=== PATIENT | male | born 1950 | race Caucasian/White ===

== ENCOUNTER 2016-12-12 19:13 | Observation (INO) | payer MEDICARE, OTHER ==
--- NOTE | 2016-12-12 19:38 | EDM.PDOC ---
ED HPI GENERAL MEDICAL PROBLEM - General Chief Complaint: General Stated Complaint: sleeping alot last 5 days Time Seen by Provider: 12/12/16 19:20 Source of Information: Reports: Patient, Family (, daughter), Old records ( [facility] chart/EMR) History Limitations: Reports: No limitations - History of Present Illness INITIAL COMMENTS - FREE TEXT/NARRATIVE: The patient was brought to the emergency room via private automobile by his for evaluation of a 5-7 day history of progressive nonspecific confusion associated with increased daytime sedation especially during the last 24 hours. He has been compliant with his home O2 therapy, including 5 L per minute by nasal cannula during the day and 4 L per minute by nasal cannula at nighttime. He has also been compliant with his home BiPAP therapy, which has not been changed recently by their history. O2 saturations at home have been in the low 90s percentile with the above therapy by their history. The patient denies any chest pain/pressure, heart flutter, dizziness, orthostasis, orthopnea, diaphoresis, paresthesias, recent decreased exercise tolerance, or any other anginal-type symptoms. No recent history of abdominal pain, nausea, diarrhea, melena, gross hematochezia, or any food intolerance, including fatty foods, etc. , although severe heartburn a couple of days ago with relief with OTC antacids. The patient also denies any recent fever, cough, wheezing, dyspnea, etc.. No history of recent headaches, visual changes, diplopia, or other change in neurological status. The patient did have some bronchitic type symptoms about one month ago with his amlodipine increased to a twice a day basis at that time secondary to some previously elevated blood pressures. He denies any true pain or discomfort Onset: gradual Onset Date: 12/05/16 Duration: Chronic, Getting worse Severity: mild Improves with: Reports: None Worsens with: Reports: None Context: Reports: Other (As above) Associated Symptoms: Reports: confusion. Denies: chest pain, cough, diaphoresis , fever/chills, headaches, loss of appetite, nausea/vomiting, seizure, shortness of breath, weakness Treatments NEEDLE MAKER: Reports: Oxygen (Home O2 as above) - Related Data Allergies Allergy/AdvReac Type Severity Reaction Status Date / Time No Known Allergies Allergy Verified 12/12/16 20:04 Home Meds: Home Meds Albuterol [Ventolin HFA] 2 puff INH Q4H 07/27/13 [History] Albuterol/Ipratropium [DuoNeb 3.0-0.5 MG/3 ML] 1 inhalation INH QID 07/27/13 [ History] Ascorbic Acid [Vitamin C] 500 mg PO DAILY 07/27/13 [History] Aspirin [Ecotrin] 325 mg PO DAILY 07/27/13 [History] Atenolol 25 mg PO DAILY 07/27/13 [History] Cholecalciferol (Vitamin D3) [Vitamin D3] 2,000 unit PO BID 07/27/13 [History] Citalopram [Citalopram HBr] 20 mg PO DAILY 07/27/13 [History] Fluticasone/Salmeterol [Advair 500-50] 1 puff INH BID 07/27/13 [History] Furosemide [Lasix] 40 mg PO DAILY 07/27/13 [History] Tiotropium [Spiriva HandiHaler] 1 inh INH DAILY 07/27/13 [History] amLODIPine [Norvasc] 5 mg PO BID 07/27/13 [History] metFORMIN HCl [Metformin HCl] 500 mg PO BID 07/27/13 [History] atorvaSTATin [Lipitor] 40 mg PO BEDTIME 04/23/15 [History] Fenofibrate,Micronized [Fenofibrate] 134 mg PO DAILY 01/14/16 [History] buPROPion HCl [Wellbutrin Xl] 150 mg PO DAILY 01/14/16 [History] Lisinopril [Prinivil] 2.5 mg PO DAILY 03/06/16 [History] Theophylline Anhydrous [Jairo-24] 400 mg PO DAILY 03/06/16 [History] Theophylline [Jairo-24] 200 mg PO 1800 09/20/16 [History] Past Medical History HEENT History: Reports: Hard of hearing, Impaired vision, Other (see below). Denies: Allergic rhinitis, Cataract, Glaucoma, Macular degeneration, Retinal detachment Other HEENT History: Glasses, beginning presbycusis with no therapy Cardiovascular History: Reports: Arrhythmia, Bypass, CAD, Heart Failure, High cholesterol, Hypertension, Pulmonary hypertension, SOB on exertion, Other (see below). Denies: Afib, Aneurysm, Blood clots/VTE/DVT, Heart murmur, NV, Pacemaker, PVD, Syncope Other Cardiovascular History: Known heart disease requiring bypass as below with no previous NV. Previous history of nonsymptomatic PACs, PVCs, incomplete right bundle-branch block, and sinus arrhythmia. Pulmonary hypertension by chest x-ray however negative echocardiogram with exception of grade 1 diastolic dysfunction on 04/27/15 Respiratory History: Reports: Bronchitis, recurrent, COPD, Intubation, previous , Pneumonia, recurrent, Pulmonary fibrosis, Sleep apnea, Other (see below). Denies: Intubation, difficult, PE, Pneumothorax, TB Other Respiratory History: O2 dependent COPD with BiPAP therapy required, recurrent respiratory failure with history of CO2 retention and intubation and near fatal hypoxia in March 2016, bilateral multiple pulmonary nodules are benign in nature and followed by serial CT scans as below Gastrointestinal History: Reports: Chronic constipation. Denies: Celiac disease , Cholelithiasis, Chronic diarrhea, Colon polyp, Diverticulosis, Gastritis, GERD , GI bleed, Hepatitis, Hiatal hernia, Inflammatory bowel disease, Irritable bowel syndrome, Pancreatitis, PUD Genitourinary History: Reports: Chronic renal insuffiency, Diabetic nephropathy , Other (see below). Denies: Acute renal failure, BPH, Renal calculus, Retention, urinary, STD, Urinary incontinence, UTI, recurrent Other Genitourinary History: Mild renal insufficiency/diabetic nephropathy diagnosed in August 2016 Musculoskeletal History: Reports: Arthritis, Osteoarthritis, Osteoporosis. Denies: Amputation, Back pain, chronic, Fracture, Gout, Neck pain, chronic, RA, SLE Neurological History: Reports: None. Denies: Alzheimers disease, Cerebral aneurysms, Concussion, CVA, Head trauma, Migraines, MS, Neuropathy, diabetic, Neuropathy, peripheral, Parkinson's, Seizure, TIA, Vertigo Psychiatric History: Reports: Anxiety, Depression. Denies: Abuse, victim of, ADD, ADHD, Addiction, Psych Hospitalization(s), PTSD, Suicide attempt, Suicidal ideation Endocrine/Metabolic History: Reports: Diabetes, type II, Obesity/BMI 30+, Osteoporosis. Denies: Diabetes, type I, Hypothyroidism, IDDM Hematologic History: Reports: None. Denies: Anemia, Blood transfusion(s), Iron deficiency Immunologic History: Reports: None. Denies: AIDS, HIV, SLE Oncologic (Cancer) History: Reports: None. Denies: Basal cell carcinoma, Hodgkin's Lymphoma, Leukemia, Lung, Lymphoma, Malignant melanoma, Non-Hodgkin's Lymphoma, Prostate, Squamous cell carcinoma Dermatologic History: Reports: None. Denies: Eczema, Psoriasis, Venous stasis dermatitis - Infectious Disease History Infectious Disease History: Reports: MRSA (? sputum). Denies: C-difficile, Chicken pox, Measles, Meningitis, Mononucleosis, Mumps, Pertussis (whooping cough), Rheumatic Fever, Rubella, Scarlet fever, Shingles, TB, VRE - Past Surgical History Head Surgeries/Procedures: Reports: None HEENT Surgical History: Reports: Oral surgery, Other (see below). Denies: Adenoidectomy, Cataract surgery, Eye surgery, Laser surgery, LASIK, Myringotomy w tube(s), Naso-sinus surgery, Tonsillectomy Other HEENT Surgeries/Procedures: Complete teeth extraction in about 2007 with upper and lower dentures only one remaining right lower tooth Cardiovascular Surgical History: Reports: Coronary artery bypass, Other (see below). Denies: Aneurysm, Cardiac Ablation, Coronary artery stent, Pacer, Percutaneous transluminal angioplasty, Varicose, Vascular surgery Other Cardiovascular Surgeries/Procedures: Four-vessel CABG in about 2006 Respiratory Surgical History: Reports: Lung Biopsies, Other (see below). Denies : Lung Resection, Thoracentesis Other Respiratory Surgeries/Procedures: Apparent lung biopsy at time of CABG in 2006 with benign disease GI Surgical History: Reports: None. Denies: Appendectomy, Cholecystectomy, Colonoscopy, EGD, Hernia, abdominal, Hernia, inguinal, Hernia repair/other Male Surgical History: Reports: Circumcision, Other (see below). Denies: Prostate Biopsy, TURP-Transurethral resection of prostate, Vasectomy Other Male Surgeries/Procedures: Circumcision as an Endocrine Surgical History: Reports: None. Denies: Thyroid biopsy Neurological Surgical History: Reports: None. Denies: C-Spine, Discectomy, Laminectomy, Lumbar spine, Spinal fusion, Vertebroplasty Musculoskeletal Surgical History: Reports: None. Denies: Amputation, Arthroscopic procedure, Carpal tunnel, Ganglion cyst, Joint replacement, ORIF, Shoulder surgery Oncologic Surgical History: Reports: None Dermatological Surgical History: Reports: None - Past Imaging History Past Imaging History: Reports: Cardiac echo (Last echocardiogram at [facility] in [place] in February 2016 with results not available, however apparently normal. Previous echocardiogram on 04/27/15 with grade 1 diastolic dysfunction and ejection fraction of 60-65% with previous evaluation on 06/13/13), CAT scan (Chest on 01/10/08), PFT (Last on 01/06/08), Stress testing (Low level cardiac stress test on 07/31/06) Social & Family History - Family History HEENT: Reports: None. Denies: Allergic rhinitis, Glaucoma, Macular degeneration , Retinal detachment Cardiac: Reports: CAD, Hypertension, NV, Other (see below). Denies: Afib, Aneurysm, Arrhythmia, Blood clots/VTE/DVT, Heart failure, High cholesterol, Pacemaker, PVD/COD, Syncope Other Cardiac Family History: Father with fatal NV at age 59, brother with fatal NV at age 47, hypertension in father and 2 brothers Respiratory: Reports: Asthma, COPD, Other (see below). Denies: PE, Pneumothorax , Sleep apnea Other Respiratory Family Hisory: Sister with fatal COPD in her 60s, sister with asthma GI: Reports: None. Denies: Celiac disease, Cholelithiasis, Colon polyps, GERD, GI bleed, Hepatitis, Inflammatory bowel disease, Irritable bowel syndrome, Pancreatitis, PUD : Reports: None. Denies: Dialysis, Renal calculus, Renal disease/ insufficiency OBGYN: Reports: None. Denies: Dysfunctional uterine bleeding, Endometriosis, Recurrent spontaneous Musculoskeletal: Reports: Arthritis, SLE, Other (see below). Denies: Gout, RA Other Musculoskeletal Family History: Sister with fatal SLE at age 47 Neurological: Reports: None. Denies: Alzheimers disease, Cerebral aneurysms, Cerebral palsy, CVA, Dementia, Parkinson's, Seizure, TIA Psychiatric: Reports: Anxiety, Depression, Other (see below). Denies: Abuse, victim of, ADD, ADHD, Psych hospitalization(s), Psychosis, Suicide attempt Other Psychiatric Family History: Anxiety depression disorder in mother, sister , and brother Endocrine/Metabolic: Reports: Diabetes, type II, IDDM, Other (see below). Denies: Diabetes, type I, Hypothyroidism Other Endocrine/Metabolic Family History: Diabetes mellitus in 2 sisters and his mother with his mother requiring insulin supplementation Hematologic: Reports: SLE, Other (see below) Other Hematologic Family History: Sister with SLE Immunologic: Reports: SLE, Other (see below) Other Immunologic Family History: Sister with SLE Dermatologic: Reports: None. Denies: Eczema, Psoriasis Oncologic: Reports: Esophageal, Metastatic, Other (see below). Denies: Colon, Hodgkin's lymphoma, Leukemia, Lymphoma, Non-Hodgkin's lymphoma, Skin Other Oncologic Family History: Sister with fatal esophageal cancer with pulmonary metastases at age 63 with history of tobacco use - Tobacco Use Smoking Status *Q: Current Every Day Smoker Tobacco Use Within Last Twelve Months: Cigarettes Years of Tobacco use: 41 Packs/Tins Daily: 1.5 Used Tobacco, but Quit: Yes Month Tobacco Last Used: Smoking in September 2016 with previous maximum use of 3 packs per day Smoking Cessation Information Provided To Patient: No Second Hand Smoke Exposure: No Second Hand Smoke Education Provided: No - Caffeine Use Caffeine Use: Reports: Coffee (1-2 cups per day), Tea (6 cups of green tea per day). 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 Denies: fever, chills, malaise, weakness , fatigue, night sweats, diaphoresis, weight loss HEENT: Denies: Dental pain, Ear pain, Eye discharge, Eye pain, Glasses, Hearing loss, Throat pain, Vertigo, Vision change Respiratory: Reports: Cough (Change). Denies: Shortness of Breath, Wheezing, Pleuritic Chest Pain, Sputum Cardiovascular: Reports: Blood pressure problem (Blood pressure medications recently increased as above). Denies: Dyspnea on exertion, Edema, Lightheadedness, Orthopnea, Palpitations, Syncope Endocrine: Reports: no symptoms. Denies: fatigue GI/Abdominal: Reports: No symptoms. Denies: Abdominal pain, Anorexia, Black stool, Bloody stool, Constipation, Diarrhea, Decreased appetite, Difficulty swallowing, Distension, Flatus, Hematochezia, Melena, Nausea, Stool incontinence , Vomiting : Reports: no symptoms. Denies: discharge, dysuria, flank pain, frequency, hematuria, pain, urgency, urinary retention Musculoskeletal: Reports: no symptoms. Denies: neck pain, shoulder pain, arm pain, back pain, leg pain Skin: Reports: no symptoms. Denies: diaphoresis, pruritis, wound Neurological: Reports: Confusion. Denies: Dizziness, Headache, Numbness, Paresthesia, Syncope, Tingling, Weakness Psychiatric: Reports: Confusion. Denies: Anxiety, Depression, Hallucinations, Suicidal ideation Hematologic/Lymphatic: Reports: no symptoms Immunologic: Reports: no symptoms ED EXAM, GENERAL - Physical Exam Exam: See Below Exam Limited By: No limitations General Appearance: alert, WD/WN, no apparent distress Eye Exam: bilateral eye: EOMI, normal fundi, normal inspection (No nystagmus), PERRL Ears: normal external exam, normal canal, hearing grossly normal, normal TMs Nose: normal inspection, normal mucosa, no blood Throat/Mouth: Normal inspection, Normal lips, Normal gums, Normal oropharynx, Normal voice, No airway compromise. No: Normal teeth (Only one right lower anterior remaining tooth present with patient not wearing his complete upper dentures and partial lowers today), Dysphagia, Perioral cyanosis Head: atraumatic, normocephalic. No: facial swelling, facial tenderness, sinus tenderness Neck: normal inspection, supple, non-tender, full range of motion. No: carotid bruit, lymphadenopathy (L), lymphadenopathy (R), thyromegaly Respiratory/Chest: no respiratory distress, lungs clear, normal breath sounds, no accessory muscle use, chest non-tender. No: rhonchi, wheezing, pleural rub, retractions Cardiovascular: normal peripheral pulses, no edema, no JVD, no murmur, no rub. No: regular rate, rhythm (Regular rate with mild to moderate irregular rhythm consistent with sinus arrhythmia by telemetry as below ), systolic murmur, gallop/S3, gallop/S4, friction rub Peripheral Pulses: 2+: radial (L), radial (R) GI/Abdominal: normal bowel sounds, soft, non tender, no organomegaly, no distention, no abnormal bruit, no mass, other (Obese). No: guarding (Male) Exam: Deferred Rectal (Males) Exam: Deferred Back Exam: normal inspection, full range of motion. No: CVA tenderness (L), CVA tenderness (R), muscle spasm Extremities: normal inspection, normal range of motion, non-tender, no pedal edema, normal capillary refill. No: Mic's Sign Neurological: alert, oriented, CN II-XII intact, normal gait, normal reflexes ( Negative Babinski's, finger to nose, and pronator rotation tests. No evidence of facial paresis, tongue deviation, orthostasis, etc.. Some problem with reverse thought processes.), no motor/sensory deficits, confused (Borderline) Psychiatric: normal affect, normal mood Skin Exam: Warm, Dry, Intact, Normal color, No rash. No: Diaphoretic, Ecchymosis, Erythema, Wound/incision Lymphatic: no adenopathy EKG INTERPRETATION EKG Date: 12/12/16 Time: 19:58 Rhythm: other (Sinus arrhythmia with occasional PACs) Rate (beats/min): 75 Gunter: normal (Left cardiac axis) P-wave: enlarged (Moderate diffuse biphasic P waves with mild poor R wave progression anteriorly) QRS: normal (QRS interval of 0.09 seconds with resolution of previous borderline incomplete right bundle branch block) ST-T: normal QT: normal NV/PQ Interval: 0.17 seconds Comparison: change from previous EKG (As above since 09/20/16) EKG Interpretation Comments: 1. No acute ischemic changes 2. Sinus arrhythmia with PACs 3. History of incomplete right bundle branch block Course - Vital Signs Last Recorded V/S: Last Vital Signs Temp 36.6 C 12/12/16 19:18 Pulse 75 12/12/16 20:50 Resp 28 H 12/12/16 20:50 BP 138/70 12/12/16 20:50 Pulse Ox 95 12/12/16 20:50 Vital Signs - 24 hr 12/12/16 12/12/16 12/12/16 19:18 19:41 19:58 Temperature [ 36.6 C Oral] Pulse, 60 68 Peripheral [ Right Pulse Oximetry] Respiratory 22 H 22 H 22 H Rate Blood Pressure 156/77 H 143/98 H [Right Upper Arm] O2 Sat by Pulse 96 96 95 Oximetry O2 Sat by Pulse Oximetry [ Nasal Cannula] 12/12/16 12/12/16 12/12/16 19:59 20:30 20:50 Temperature [ Oral] Pulse, 73 75 Peripheral [ Right Pulse Oximetry] Respiratory 25 H 28 H Rate Blood Pressure 98/64 138/70 [Right Upper Arm] O2 Sat by Pulse 94 L 95 Oximetry O2 Sat by Pulse 91 L Oximetry [ Nasal Cannula] - Orders/Labs/Meds Orders: Active Orders 24 hr Category Date Time Status Cardiac Monitoring [RC] . DIRECTED Care 12/12/16 19:39 Active EKG Documentation Completion [RC] ASDIRECTED Care 12/12/16 19:39 Active Oxygen Therapy, ED [RC] CONTINUOUS Care 12/12/16 19:39 Active Peripheral IV Care [RC] . DIRECTED Care 12/12/16 19:39 Active Pulse Oximetry [RC] CONTINUOUS Care 12/12/16 19:39 Active Up With Assistance [RC] PFP Care 12/12/16 19:39 Active Vital Signs [RC] Q30M Care 12/12/16 19:39 Active Nothing per Oral Now Diet [DIET] Diet 12/12/16 Breakfast Active Chest 1V Frontal [CR] Stat Exams 12/12/16 19:39 Taken Sodium Chloride 0.9% [Saline Flush] Med 12/12/16 19:39 Active 10 ml FLUSH ASDIRECTED PRN Obtain Past Medical Record [OM.PC] Urgent Oth 12/12/16 19:39 Active Peripheral IV Insertion Adult [OM.PC] Stat Oth 12/12/16 19:39 Ordered Resuscitation Status Stat Resus Stat 12/12/16 19:39 Ordered Medication Orders Sodium Chloride (Saline Flush) 10 ml FLUSH ASDIRECTED PRN PRN Reason: Keep Vein Open Last Admin: 12/12/16 21:07 Dose: 10 ml Admin: 12/12/16 21:02 Dose: 10 ml Labs: Laboratory Tests 12/12/16 12/12/16 12/12/16 Range/Units 20:00 20:00 20:00 WBC 11.1 H (4.0-10.2) K/uL RBC 4.13 L (4.33-5.41) M/uL Hgb 11.8 L (13.1-16.8) g/dL Hct 40.2 (39.0-49.0) % MCV 97.3 (84.0-98.0) fL MCH 28.6 (28.2-33.3) pg MCHC 29.4 L (31.7-36.0) g/dL RDW 13.7 (11.2-14.1) % Plt Count 303 (150-350) K/uL Neut % (Auto) 78.0 (45.0-80.0) % Lymph % (Auto) 12.3 (10.0-50.0) % [place] % (Auto) 8.6 (2.0-14.0) % Eos % (Auto) 0.7 (0.0-5.0) % Baso % (Auto) 0.4 (0.0-2.0) % Neut # (Auto) 8.69 H (1.40-7.00) K/uL Lymph # (Auto) 1.37 (0.50-3.50) K/uL [place]ley # (Auto) 0.96 (0.00-1.00) K/uL Eos # (Auto) 0.08 (0.00-0.50) K/uL Baso # (Auto) 0.04 (0.00-0.20) K/uL PT 10.4 (9.8-11.7) SEC INR 1.0 APTT 25.9 (23.5-30.0) SEC D-Dimer, Quantitative < 100 (0-400) ng/mL ABG pH (7.35-7.45) ABG pCO2 (35-45) mmHG ABG pO2 (80-105) mmHG ABG HCO3 (22-26) mmol/L ABG Total CO2 (23-27) mmol/L ABG O2 Saturation (95-98) % ABG Base Excess (-2-3) mmol/L O2 Delivery Device Sodium (136-145) mmol/L Potassium (3.5-5.1) mmol/L Chloride (98-107) mmol/L Carbon Dioxide (21.0-32.0) mmol/L BUN (7-18) mg/dL Creatinine (0.51-1.17) mg/dL Est Cr Clr Drug Dosing mL/min Estimated GFR (MDRD) mL/min Glucose (74-106) mg/dL Lactic Acid (0.4-2.0) mmol/L Uric Acid (2.6-7.2) mg/dL Calcium (8.5-10.1) mg/dL Magnesium (1.8-2.4) mg/dL Total Bilirubin (0.2-1.0) mg/dL AST (15-37) U/L ALT (12-78) U/L Alkaline Phosphatase (46-116) IU/L Creatine Kinase (26-308) U/L Creatine Kinase Index (0.0-2.5) % CK-MB (CK-2) (0.00-3.60) ng/mL Troponin I (0.000-0.056) ng/mL [id number] Pept (0-125) pg/mL Total Protein (6.4-8.2) g/dL Albumin (3.4-5.0) g/dL TSH, Ultra Sensitive (0.358-3.740) mIU/mL Theophylline (10-20) ug/dL H. pylori IgG Antibody (NEGATIVE) 12/12/16 12/12/16 12/12/16 Range/Units 20:00 20:00 20:00 WBC (4.0-10.2) K/uL RBC (4.33-5.41) M/uL Hgb (13.1-16.8) g/dL Hct (39.0-49.0) % MCV (84.0-98.0) fL MCH (28.2-33.3) pg MCHC (31.7-36.0) g/dL RDW (11.2-14.1) % Plt Count (150-350) K/uL Neut % (Auto) (45.0-80.0) % Lymph % (Auto) (10.0-50.0) % Greeley % (Auto) (2.0-14.0) % Eos % (Auto) (0.0-5.0) % Baso % (Auto) (0.0-2.0) % Neut # (Auto) (1.40-7.00) K/uL Lymph # (Auto) (0.50-3.50) K/uL Greeley # (Auto) (0.00-1.00) K/uL Eos # (Auto) (0.00-0.50) K/uL Baso # (Auto) (0.00-0.20) K/uL PT (9.8-11.7) SEC INR APTT (23.5-30.0) SEC D-Dimer, Quantitative (0-400) ng/mL ABG pH (7.35-7.45) ABG pCO2 (35-45) mmHG ABG pO2 (80-105) mmHG ABG HCO3 (22-26) mmol/L ABG Total CO2 (23-27) mmol/L ABG O2 Saturation (95-98) % ABG Base Excess (-2-3) mmol/L O2 Delivery Device Sodium 140 (136-145) mmol/L Potassium 4.9 (3.5-5.1) mmol/L Chloride 101 (98-107) mmol/L Carbon Dioxide 40.0 H (21.0-32.0) mmol/L BUN 25 H (7-18) mg/dL Creatinine 1.45 H (0.51-1.17) mg/dL Est Cr Clr Drug Dosing 54.26 mL/min Estimated GFR (MDRD) 49 mL/min Glucose 108 H (74-106) mg/dL Lactic Acid 0.8 (0.4-2.0) mmol/L Uric Acid 6.4 (2.6-7.2) mg/dL Calcium 8.0 L (8.5-10.1) mg/dL Magnesium 1.5 L (1.8-2.4) mg/dL Total Bilirubin 0.3 (0.2-1.0) mg/dL AST 23 (15-37) U/L ALT 22 (12-78) U/L Alkaline Phosphatase 44 L (46-116) IU/L Creatine Kinase 145 (26-308) U/L Creatine Kinase Index 2.7 H* (0.0-2.5) % CK-MB (CK-2) 3.90 H (0.00-3.60) ng/mL Troponin I 0.024 (0.000-0.056) ng/mL [id number] Pept 159 H (0-125) pg/mL Total Protein 6.9 (6.4-8.2) g/dL Albumin 3.2 L (3.4-5.0) g/dL TSH, Ultra Sensitive 1.807 (0.358-3.740) mIU/mL Theophylline (10-20) ug/dL H. pylori IgG Antibody Positive H (NEGATIVE) 12/12/16 12/12/16 Range/Units 20:00 20:50 WBC (4.0-10.2) K/uL RBC (4.33-5.41) M/uL Hgb (13.1-16.8) g/dL Hct (39.0-49.0) % MCV (84.0-98.0) fL MCH (28.2-33.3) pg MCHC (31.7-36.0) g/dL RDW (11.2-14.1) % Plt Count (150-350) K/uL Neut % (Auto) (45.0-80.0) % Lymph % (Auto) (10.0-50.0) % [place] % (Auto) (2.0-14.0) % Eos % (Auto) (0.0-5.0) % Baso % (Auto) (0.0-2.0) % Neut # (Auto) (1.40-7.00) K/uL Lymph # (Auto) (0.50-3.50) K/uL [place] # (Auto) (0.00-1.00) K/uL Eos # (Auto) (0.00-0.50) K/uL Baso # (Auto) (0.00-0.20) K/uL PT (9.8-11.7) SEC INR APTT (23.5-30.0) SEC D-Dimer, Quantitative (0-400) ng/mL ABG pH 7.39 (7.35-7.45) ABG pCO2 75 H* (35-45) mmHG ABG pO2 62 L* (80-105) mmHG ABG HCO3 46.0 H (22-26) mmol/L ABG Total CO2 48 H (23-27) mmol/L ABG O2 Saturation 89 L (95-98) % ABG Base Excess 21 H (-2-3) mmol/L O2 Delivery Device Nasal cannula Sodium (136-145) mmol/L Potassium (3.5-5.1) mmol/L Chloride (98-107) mmol/L Carbon Dioxide (21.0-32.0) mmol/L BUN (7-18) mg/dL Creatinine (0.51-1.17) mg/dL Est Cr Clr Drug Dosing mL/min Estimated GFR (MDRD) mL/min Glucose (74-106) mg/dL Lactic Acid (0.4-2.0) mmol/L Uric Acid (2.6-7.2) mg/dL Calcium (8.5-10.1) mg/dL Magnesium (1.8-2.4) mg/dL Total Bilirubin (0.2-1.0) mg/dL AST (15-37) U/L ALT (12-78) U/L Alkaline Phosphatase (46-116) IU/L Creatine Kinase (26-308) U/L Creatine Kinase Index (0.0-2.5) % CK-MB (CK-2) (0.00-3.60) ng/mL Troponin I (0.000-0.056) ng/mL [id number] Pept (0-125) pg/mL Total Protein (6.4-8.2) g/dL Albumin (3.4-5.0) g/dL TSH, Ultra Sensitive (0.358-3.740) mIU/mL Theophylline 5 L (10-20) ug/dL H. pylori IgG Antibody (NEGATIVE) Meds: Medications Generic Name Dose Route Start Last Admin Trade Name Freq PRN Reason Stop Dose Admin Sodium Chloride 10 ml 12/12/16 19:39 12/12/16 21:07 Saline Flush FLUSH 10 ml ASDIRECTED PRN Administration Keep Vein Open Discontinued Medications Generic Name Dose Route Start Last Admin Trade Name Freq PRN Reason Stop Dose Admin Famotidine 40 mg 12/12/16 20:56 12/12/16 21:02 Pepcid IVPUSH 12/12/16 20:57 40 mg ONETIME ONE Administration - Radiology Interpretation Free Text/Narrative:: Heart monitor shows mild to moderate sinus arrhythmia including occasional PACs with heart rate ranging in the 60s to 80s with no other ectopy or arrhythmia Chest x-ray, portable, shows moderate to severe COPD changes and probable pulmonary hypertension versus borderline mild centralized CHF. Mild right pleural effusion noted with atelectasis present in the right middle lobe and lower lobes bilaterally. No significant pulmonary infiltrates, pneumothorax, etc. Note status post medial sternotomy Departure - Departure Time of Disposition: 21:20 Disposition: Refer to Observation Condition: good Clinical Impression: COPD, Severe chronic obstructive pulmonary disease, PAC (premature atrial contraction), Renal insufficiency, Confusion, Peptic reflux disease, H. pylori infection, Hypomagnesemia, Hypoalbuminemia Coronary artery disease Qualifiers: Coronary Disease-Associated Artery/Lesion type: bypass graft, autologous artery Associated angina: without angina Qualified Code(s): I25.810 - Atherosclerosis of coronary artery bypass graft(s) without angina pectoris Hyperlipidemia Qualifiers: Hyperlipidemia type: mixed hyperlipidemia Qualified Code(s): E78.2 - Mixed hyperlipidemia Hypertension Qualifiers: Hypertension type: essential hypertension Qualified Code(s): I10 - Essential ( primary) hypertension Diabetes mellitus Qualifiers: Diabetes mellitus type: type 2 Diabetes mellitus complication status: without complication Diabetes mellitus nursing home insulin use: without 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 plant operator use Qualified Code(s): E11.9 - Type 2 diabetes mellitus without complications CHF (congestive heart failure) Qualifiers: Congestive heart failure type: diastolic Congestive heart failure chronicity: acute Qualified Code(s): I50.31 - Acute diastolic (congestive) heart failure Anemia Qualifiers: Anemia type: unspecified type Qualified Code(s): D64.9 - Anemia, unspecified Forms: ED Department Discharge Care Plan Goals: See plan - Problem List & Annotations (1) Confusion SNOMED Code(s): 442027970 Code(s): R41.0 - DISORIENTATION, UNSPECIFIED Status: Acute Priority: High Onset Date: 03/06/16 Annotation/Comment:: Recent intermittent confusion probably secondary to CO2 retention with patient on a fairly high baseline O2 of 5 L per minute by nasal cannula. O2 was decreased to 4 L per minute by nasal cannula immediately in the emergency room with stable O2 saturations between 94 and 96%. Patient's BiPAP therapy this evening should help with the CO2 retention, which is moderate in nature based on today's ABGs. BiPAP therapy was initiated immediately upon receive of patient's home unit this to be continued until otherwise directed by Dr. Mirza in the a.m. at time of rounds. Consider further decrease of his O2 therapy depending on his clinical course. The patient should have his home concentrator and oxygen equipment checked by their supplier [employer] prior to discharge of the patient to home, which the patient's agrees to arrange. He will continue his home BiPAP therapy during this hospitalization, which may also need to be extended during the course of the day tomorrow. Neurological checks with vitals. Consider CT of the brain depending on his clinical course. (2) COPD, Severe chronic obstructive pulmonary disease SNOMED Code(s): 191876160 Code(s): J44.9 - CHRONIC OBSTRUCTIVE PULMONARY DISEASE, UNSPECIFIED Status : Chronic Priority: High Annotation/Comment:: Severe O2 dependent COPD and sleep apnea, including oxygen and BiPAP therapy. Additional history of recurrent CO2 retention as above. Repeat ABGs depending on his clinical course. Borderline leukocytosis with no direct evidence of acute infection, including recent fever, etc. Note subtherapeutic theophylline level with question of possible medication noncompliance secondary to patient's confusion (3) CHF (congestive heart failure) SNOMED Code(s): 12076887 Code(s): I50.9 - HEART FAILURE, UNSPECIFIED Status: Acute Priority: High Onset Date: 03/06/16 Annotation/Comment:: Only mildly elevated BNP and borderline centralized CHF by chest x-ray. No recent chest pain or anginal- type symptoms despite mildly elevated cardiac index with mild change in troponin I, which is still normal. Note previous history of mild diastolic dysfunction by echocardiogram as above. Consider repeat echocardiogram, heart catheterization, etc. depending on his clinical course. Initiate standard rule out NV orders with repeat blood work in the a.m. Consider subcutaneous Lovenox therapy Qualifiers: Congestive heart failure type: diastolic Congestive heart failure chronicity: acute Qualified Code(s): I50.31 - Acute diastolic (congestive) heart failure (4) Coronary artery disease SNOMED Code(s): 38591693 Code(s): I25.10 - ATHSCL HEART DISEASE OF [place] CORONARY ARTERY W/O ANG PCTRS Status: Chronic Priority: High Annotation/Comment:: No chest pain or anginal complaints recently as above. Chest pain protocol not initiated in the emergency room secondary to absence of anginal complaints. Repeat EKG, blood work, etc. in the a.m. as above Qualifiers: Coronary Disease-Associated Artery/Lesion type: bypass graft, autologous artery Associated angina: without angina Qualified Code(s): I25.810 - Atherosclerosis of coronary artery bypass graft(s) without angina pectoris (5) Anemia SNOMED Code(s): 485355190 Code(s): D64.9 - ANEMIA, UNSPECIFIED Status: Acute Priority: Medium Onset Date: 09/21/16 Annotation/Comment:: History of anemia in the past with only borderline anemia today. Note newly diagnosed H. pylori infection with recent heartburn but no direct evidence of acute GI bleed. Hemoccults during this hospitalization. Consider further GI workup depending on his clinical course. Patient has not yet had a colonoscopy, which is advisable along with probable EGD once his cardiac status and pulmonary status have stabilized Qualifiers: Anemia type: unspecified type Qualified Code(s): D64.9 - Anemia, unspecified (6) H. pylori infection SNOMED Code(s): 405726354 Code(s): A04.8 - OTHER SPECIFIED BACTERIAL INTESTINAL INFECTIONS Status: Acute Priority: Medium Onset Date: 12/12/16 Annotation/Comment:: IV Pepcid given in the emergency room. The patient and his family wish to consider H. pylori treatment regimen and will discuss this further with their regular providers in the a.m. [facility] assumes care in the a.m. (7) Hypoalbuminemia SNOMED Code(s): 909799746 Code(s): E88.09 - OTH DISORDERS OF PLASMA-PROTEIN METABOLISM, NEC Status: Acute Priority: Medium Onset Date: 09/20/16 Annotation/Comment:: Reinitiate high-protein Glucerna supplements as snacks with the patient noncompliant with this supplement since hospital discharge in August (8) Hypomagnesemia SNOMED Code(s): 255406899 Code(s): E83.42 - HYPOMAGNESEMIA Status: Chronic Priority: Medium Onset Date: 09/20/16 Annotation/Comment:: Reinitiate previous magnesium oxide therapy with normal magnesium level at time of previous hospital discharge in August with this therapy (9) Peptic reflux disease SNOMED Code(s): 77875813 Code(s): K21.9 - GASTRO-ESOPHAGEAL REFLUX DISEASE WITHOUT ESOPHAGITIS Status: Acute Priority: High Onset Date: 12/12/16 Annotation/Comment:: Newly diagnosed H. pylori infection as above. IV Pepcid given in the ER (10) Renal insufficiency SNOMED Code(s): 845212024 Code(s): N28.9 - DISORDER OF KIDNEY AND URETER, UNSPECIFIED Status: Acute Priority: Medium Onset Date: 09/21/16 Annotation/Comment:: Mild renal insufficiency relatively stable today. Possible beginning diabetic nephropathy. Observe closely with repeat blood work in the a.m.. 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 Lipid panel in a.m. Qualifiers: Hyperlipidemia type: mixed hyperlipidemia Qualified Code(s): E78.2 - Mixed hyperlipidemia (13) Hypertension SNOMED Code(s): 79049917 Code(s): I10 - ESSENTIAL (PRIMARY) HYPERTENSION Status: Chronic Priority : Medium Annotation/Comment:: Blood pressures stable. Qualifiers: Hypertension type: essential hypertension Qualified Code(s): I10 - Essential (primary) hypertension - Problem List Review Problem List Initiated/Reviewed/Updated: Yes - My Orders Last 24 Hours: My Active Orders 12/12/16 19:39 Cardiac Monitoring [RC] . DIRECTED EKG Documentation Completion [RC] ASDIRECTED Oxygen Therapy, ED [RC] CONTINUOUS Peripheral IV Care [RC] . DIRECTED Pulse Oximetry [RC] CONTINUOUS Up With Assistance [RC] PFP Vital Signs [RC] Q30M Chest 1V Frontal [CR] Stat Sodium Chloride 0.9% [Saline Flush] 10 ml FLUSH ASDIRECTED PRN Obtain Past Medical Record [OM.PC] Urgent Peripheral IV Insertion Adult [OM.PC] Stat Resuscitation Status Stat 12/12/16 Breakfast Nothing per Oral Now Diet [DIET] - Assessment/Plan Admission H&P: Please use this note as an admission H&P Last 24 Hours: My Active Orders 12/12/16 19:39 Cardiac Monitoring [RC] . DIRECTED EKG Documentation Completion [RC] ASDIRECTED Oxygen Therapy, ED [RC] CONTINUOUS Peripheral IV Care [RC] . DIRECTED Pulse Oximetry [RC] CONTINUOUS Up With Assistance [RC] PFP Vital Signs [RC] Q30M Chest 1V Frontal [CR] Stat Sodium Chloride 0.9% [Saline Flush] 10 ml FLUSH ASDIRECTED PRN Obtain Past Medical Record [OM.PC] Urgent Peripheral IV Insertion Adult [OM.PC] Stat Resuscitation Status Stat 12/12/16 Breakfast Nothing per Oral Now Diet [DIET] Assessment:: As above Plan: As above. Extensive precautions were given to the patient and his and daughter, who are in agreement with the treatment plan. The patient's condition is stable enough for observation status and general supervision. [facility] assumes care in the a.m.
[2016-12-12] MEDS ORDERED: Famotidine 20 MG/2 ML SDV IVPUSH ONE (20:56)
[2016-12-12 21:01] LABS: O2 DELIVERY DEVICE NASAL CANNULA
[2016-12-12 21:02] LABS: PCO2 ARTERIAL 75 mmHG (35-45)
[2016-12-12] MEDS: Sodium Chloride 0.9% 10 ML Syringe FLUSH PRN ×2 (21:02→21:07)
[2016-12-12 21:03] LABS: BASE EXCESS ARTERIAL 21 mmol/L (-2-3); O2 SATURATION ARTERIAL 89 % (95-98); PO2 ARTERIAL 62 mmHG (80-105)
[2016-12-12] MEDS ORDERED: Acetaminophen 325 MG Tab PO PRN (21:38)
[2016-12-12] MEDS ORDERED: Sodium Chloride 0.9% 10 ML Syringe FLUSH PRN (21:38)
[2016-12-12] MEDS ORDERED: Temazepam 15 MG Cap PO PRN (21:38)
[2016-12-12] MEDS ORDERED: Albuterol 0.083% 2.5 MG/3 ML Neb Soln INH PRN (21:38)
[2016-12-12] MEDS ORDERED: Albuterol/Ipratropium 3.0-0.5 MG/3 ML Neb Soln NEB PRN (21:38)
[2016-12-12] MEDS: Budesonide 0.5 MG/2 ML Neb Susp NEB SCH (22:01)
[2016-12-12] MEDS: Formoterol/Mometasone 200-5 MCG 8.8 GM Inhaler IH SCH (22:01)
[2016-12-12] MEDS: metFORMIN 500 MG Tab PO SCH (22:01)
[2016-12-12] MEDS: Dextromethorphan/guaiFENesin 600-30 MG Tab.ER PO SCH (22:01)
[2016-12-13] MEDS: Albuterol/Ipratropium 3.0-0.5 MG/3 ML Neb Soln NEB SCH ×4 (02:06→20:01)
[2016-12-13] MEDS: buPROPion 150 MG Tab.ER PO SCH (08:10)
[2016-12-13] MEDS: Dextromethorphan/guaiFENesin 600-30 MG Tab.ER PO SCH ×2 (08:10→17:50)
[2016-12-13] MEDS: Lisinopril 5 MG Tab PO SCH (08:11)
[2016-12-13] MEDS: Citalopram 20 MG Tab PO SCH (08:12)
[2016-12-13] MEDS: Formoterol/Mometasone 200-5 MCG 8.8 GM Inhaler IH SCH ×2 (08:12→17:49)
[2016-12-13] MEDS: metFORMIN 500 MG Tab PO SCH ×2 (08:13→17:50)
[2016-12-13] MEDS: Budesonide 0.5 MG/2 ML Neb Susp NEB SCH ×2 (08:13→20:01)
[2016-12-13] MEDS: Magnesium Oxide 400 MG Tab PO SCH (08:13)
[2016-12-13] MEDS: Aspirin 325 MG Tab.EC PO SCH (08:13)
[2016-12-13] MEDS: Fenofibrate,Micronized 134 MG Cap PO SCH (08:13)
[2016-12-13] MEDS: Atenolol 25 MG Tab PO SCH (08:14)
[2016-12-13] MEDS: Tiotropium Inhaler 18 MCG Inhalation Powder Cap Kit of 5 INH SCH (08:14)
[2016-12-13] MEDS: amLODIPine 5 MG Tab PO SCH ×2 (08:15→17:50)
[2016-12-13] MEDS: Furosemide 40 MG Tab PO SCH (08:15)
[2016-12-13] MEDS: THEOPHYLLINE ANHYDROUS 400 MG PO SCH (09:47)
[2016-12-13 17:25] LABS: O2 DELIVERY DEVICE NASAL CANNULA
[2016-12-13 17:26] LABS: BASE EXCESS ARTERIAL 16 mmol/L (-2-3); O2 SATURATION ARTERIAL 93 % (95-98); PCO2 ARTERIAL 74 mmHG (35-45); PO2 ARTERIAL 72 mmHG (80-105)
[2016-12-13] MEDS ORDERED: THEOPHYLLINE 200 MG PO SCH (18:00)
--- NOTE | 2016-12-13 18:30 | PCM.PN ---
- General Info Date of Service: 12/13/16 Functional Status: Reports: pain controlled, tolerating diet - Review of Systems General: Reports: No Symptoms HEENT: Reports: no symptoms Pulmonary: Reports: no symptoms Cardiovascular: Reports: No Symptoms Gastrointestinal: Reports: No symptoms Genitourinary: Reports: no symptoms Musculoskeletal: Reports: no symptoms Skin: Reports: no symptoms Neurological: Reports: No Symptoms Psychiatric: Reports: no symptoms - Patient Data Vitals - most recent: Last Vital Signs Temp 98.4 F 12/13/16 16:00 Pulse 100 12/13/16 16:00 Resp 16 12/13/16 05:25 BP 129/89 12/13/16 17:50 Pulse Ox 96 12/13/16 16:00 Weight - most recent: 268 lb 8.016 oz I&O - last 24 hours: Intake & Output 12/13/16 12/13/16 12/13/16 06:59 14:59 22:59 Intake Total 560 Output Total 500 Balance -500 560 Lab Results last 24 hrs: Laboratory Results - last 24 hr 12/12/16 12/13/16 12/13/16 Range/Units 22:30 06:50 06:50 WBC 11.8 H (4.0-10.2) K/uL RBC 3.72 L (4.33-5.41) M/uL Hgb 10.7 L (13.1-16.8) g/dL Hct 36.4 L (39.0-49.0) % MCV 97.8 (84.0-98.0) fL MCH 28.8 (28.2-33.3) pg MCHC 29.4 L (31.7-36.0) g/dL RDW 13.7 (11.2-14.1) % Plt Count 243 (150-350) K/uL Neut % (Auto) 80.1 H (45.0-80.0) % Lymph % (Auto) 11.6 (10.0-50.0) % [place] % (Auto) 7.2 (2.0-14.0) % Eos % (Auto) 0.9 (0.0-5.0) % Baso % (Auto) 0.2 (0.0-2.0) % Neut # (Auto) 9.43 H (1.40-7.00) K/uL Lymph # (Auto) 1.36 (0.50-3.50) K/uL [place] # (Auto) 0.85 (0.00-1.00) K/uL Eos # (Auto) 0.10 (0.00-0.50) K/uL Baso # (Auto) 0.02 (0.00-0.20) K/uL ABG pH (7.35-7.45) ABG pCO2 (35-45) mmHG ABG pO2 (80-105) mmHG ABG HCO3 (22-26) mmol/L ABG Total CO2 (23-27) mmol/L ABG O2 Saturation (95-98) % ABG Base Excess (-2-3) mmol/L O2 Delivery Device Sodium 140 (136-145) mmol/L Potassium 4.7 (3.5-5.1) mmol/L Chloride 101 (98-107) mmol/L Carbon Dioxide 38.3 H (21.0-32.0) mmol/L BUN 21 H (7-18) mg/dL Creatinine 1.28 H (0.51-1.17) mg/dL Est Cr Clr Drug Dosing 61.47 mL/min Estimated GFR (MDRD) 56 mL/min Glucose 112 H (74-106) mg/dL Hemoglobin A1c (4.3-5.7) % Calcium 8.0 L (8.5-10.1) mg/dL Iron (50-175) ug/dL TIBC (250-450) ug/dL % Saturation Ferritin (8-388) ng/mL Total Bilirubin 0.3 (0.2-1.0) mg/dL AST 17 (15-37) U/L ALT 20 (12-78) U/L Alkaline Phosphatase 40 L (46-116) IU/L Creatine Kinase 109 (26-308) U/L Creatine Kinase Index 2.4 (0.0-2.5) % CK-MB (CK-2) 2.60 (0.00-3.60) ng/mL Troponin I 0.019 (0.000-0.056) ng/mL C-Reactive Protein 0.4 (<=0.9) mg/dL Total Protein 5.9 L (6.4-8.2) g/dL Albumin 2.8 L (3.4-5.0) g/dL Triglycerides 87 (30-150) mg/dL Cholesterol 117 (100-200) mg/dL LDL Cholesterol, Calc 61 (0-100) mg/dL HDL Cholesterol 39 L (40-60) mg/dL Vitamin B12 381 (193-986) pg/mL Folate 9.1 (8.6-58.9) ng/mL Ur Random Microalbumin 100 (NEGATIVE) mg/L 12/13/16 12/13/16 12/13/16 Range/Units 06:50 06:50 17:15 WBC (4.0-10.2) K/uL RBC (4.33-5.41) M/uL Hgb (13.1-16.8) g/dL Hct (39.0-49.0) % MCV (84.0-98.0) fL MCH (28.2-33.3) pg MCHC (31.7-36.0) g/dL RDW (11.2-14.1) % Plt Count (150-350) K/uL Neut % (Auto) (45.0-80.0) % Lymph % (Auto) (10.0-50.0) % [place] % (Auto) (2.0-14.0) % Eos % (Auto) (0.0-5.0) % Baso % (Auto) (0.0-2.0) % Neut # (Auto) (1.40-7.00) K/uL Lymph # (Auto) (0.50-3.50) K/uL [place] # (Auto) (0.00-1.00) K/uL Eos # (Auto) (0.00-0.50) K/uL Baso # (Auto) (0.00-0.20) K/uL ABG pH 7.36 (7.35-7.45) ABG pCO2 74 H* (35-45) mmHG ABG pO2 72 L* (80-105) mmHG ABG HCO3 41.0 H (22-26) mmol/L ABG Total CO2 44 H (23-27) mmol/L ABG O2 Saturation 93 L (95-98) % ABG Base Excess 16 H (-2-3) mmol/L O2 Delivery Device Nasal cannula Sodium (136-145) mmol/L Potassium (3.5-5.1) mmol/L Chloride (98-107) mmol/L Carbon Dioxide (21.0-32.0) mmol/L BUN (7-18) mg/dL Creatinine (0.51-1.17) mg/dL Est Cr Clr Drug Dosing mL/min Estimated GFR (MDRD) mL/min Glucose (74-106) mg/dL Hemoglobin A1c 6.2 H (4.3-5.7) % Calcium (8.5-10.1) mg/dL Iron 54 (50-175) ug/dL TIBC 316 (250-450) ug/dL % Saturation 17.36971 Ferritin 34 (8-388) ng/mL Total Bilirubin (0.2-1.0) mg/dL AST (15-37) U/L ALT (12-78) U/L Alkaline Phosphatase (46-116) IU/L Creatine Kinase (26-308) U/L Creatine Kinase Index (0.0-2.5) % CK-MB (CK-2) (0.00-3.60) ng/mL Troponin I (0.000-0.056) ng/mL C-Reactive Protein (<=0.9) mg/dL Total Protein (6.4-8.2) g/dL Albumin (3.4-5.0) g/dL Triglycerides (30-150) mg/dL Cholesterol (100-200) mg/dL LDL Cholesterol, Calc (0-100) mg/dL HDL Cholesterol (40-60) mg/dL Vitamin B12 (193-986) pg/mL Folate (8.6-58.9) ng/mL Ur Random Microalbumin (NEGATIVE) mg/L Med Orders - Current: Current Medications Acetaminophen (Tylenol) 650 mg PO Q4H PRN PRN Reason: Pain (Mild 1-3)/fever Albuterol (Proventil Neb Soln) 2.5 mg INH Q2H PRN PRN Reason: SHORTNESS OF BREATH Albuterol/Ipratropium (Duoneb 3.0-0.5 Mg/3 Ml) 3 ml NEB Q4HRRT PRN PRN Reason: Dyspnea Last Admin: 12/12/16 22:07 Dose: 3 ml Albuterol/Ipratropium (Duoneb 3.0-0.5 Mg/3 Ml) 3 ml NEB Q6HRRT [facility] Last Admin: 12/13/16 13:46 Dose: 3 ml Amlodipine Besylate (Norvasc) 5 mg PO BID [facility] Last Admin: 12/13/16 17:50 Dose: 5 mg Aspirin (Ecotrin) 325 mg PO DAILY [facility] Last Admin: 12/13/16 08:13 Dose: 325 mg Atenolol (Tenormin) 25 mg PO DAILY [facility] Last Admin: 12/13/16 08:14 Dose: 25 mg Atorvastatin Calcium (Lipitor) 40 mg PO BEDTIME [facility] Budesonide (Pulmicort) 0.5 mg NEB BIDRT [facility] Last Admin: 12/13/16 08:13 Dose: 0.5 mg Bupropion HCl (Wellbutrin Xl) 150 mg PO DAILY [facility] Last Admin: 12/13/16 08:10 Dose: 150 mg Citalopram Hydrobromide (Celexa) 20 mg PO DAILY [facility] Last Admin: 12/13/16 08:12 Dose: 20 mg Fenofibrate (Fenofibrate) 134 mg PO DAILY [facility] Last Admin: 12/13/16 08:13 Dose: 134 mg Furosemide (Lasix) 40 mg PO DAILY [facility] Last Admin: 12/13/16 08:15 Dose: 40 mg Guaifenesin/Dextromethorphan (Mucinex Dm Er 600-30 Mg) 1 tab PO BID [facility] Last Admin: 12/13/16 17:50 Dose: 1 tab Lisinopril (Prinivil) 2.5 mg PO DAILY [facility] Last Admin: 12/13/16 08:11 Dose: 2.5 mg Magnesium Oxide (Magnesium Oxide) 400 mg PO DAILY [facility] Last Admin: 12/13/16 08:13 Dose: 400 mg Metformin HCl (Glucophage) 500 mg PO BIDMEALS [facility] Last Admin: 12/13/16 17:50 Dose: 500 mg Mometasone Furoate/Formoterol Fumar (Dulera 200-5 Mcg) 2 puff IH BID [facility] Last Admin: 12/13/16 17:49 Dose: 2 inh Theophylline [Jairo- (24] 200 Mg Capsule) 200 mg PO DAILY@1800 [facility] Last Admin: 12/13/16 17:49 Dose: 200 mg Theophylline Anhydrous [Jairo-24] 400 Mg Capsule 400 mg PO DAILY [facility] Last Admin: 12/13/16 09:47 Dose: 400 mg Sodium Chloride (Saline Flush) 10 ml FLUSH ASDIRECTED PRN PRN Reason: Keep Vein Open Last Admin: 12/12/16 21:07 Dose: 10 ml Sodium Chloride (Saline Flush) 10 ml FLUSH Q12H PRN PRN Reason: Keep Vein Open Temazepam (Restoril) 15 mg PO BEDTIME PRN PRN Reason: Insomnia Tiotropium [place] (Spiriva Handihaler) 0 mcg INH DAILY [facility] Last Admin: 12/13/16 08:14 Dose: 1 inhalation Discontinued Medications Famotidine (Pepcid) 40 mg IVPUSH ONETIME ONE Stop: 12/12/16 20:57 Last Admin: 12/12/16 21:02 Dose: 40 mg - Exam Quality Assessment: supplemental oxygen General: alert, cooperative HEENT: Mucous membr. moist/pink, Scleral icterus Neck: trachea midline Lungs: Normal respiratory effort, Decreased breath sounds, Rhonchi Cardiovascular: Regular Rate, Regular Rhythm Abdomen: bowel sounds present, soft, no tenderness, no distension (Male) Exam: Deferred Back Exam: normal inspection Skin: warm, dry, intact Neurological: no new focal deficit Psy/Mental Status: alert, normal affect, normal mood - Problem List Review Problem List Initiated/Reviewed/Updated: Yes - My Orders Last 24 Hours: My Active Orders 12/13/16 06:39 Isolation [COMM] Routine 12/13/16 Lunch Regular Diet [DIET] 12/14/16 05:11 BLOOD GAS ARTERIAL [BG] Routine CBC WITH AUTO DIFF [HEME] Routine CMP [COMPREHENSIVE METABOLIC PN,CMP] [CHEM] Routine CRP [C-REACTIVE PROTEIN] [CHEM] Routine LACTIC ACID [CHEM] Routine THEOPHYLLINE [CHEM] Routine - Plan Plan:: 12/13/16 Shoshana Concepcion MD Feeling better. Recheck ABG. Pulmonalogist recommends to adjust BIPap machine.
[2016-12-13] MEDS ORDERED: atorvaSTATin 40 MG Tab PO SCH (20:00)
[2016-12-13] MEDS: Sodium Chloride 0.9% 10 ML Syringe FLUSH PRN (20:03)
[2016-12-14] MEDS: Albuterol/Ipratropium 3.0-0.5 MG/3 ML Neb Soln NEB SCH ×3 (02:45→13:22)
[2016-12-14 07:37] LABS: O2 DELIVERY DEVICE NASAL CANNULA
[2016-12-14 07:39] LABS: BASE EXCESS ARTERIAL 14 mmol/L (-2-3); O2 SATURATION ARTERIAL 91 % (95-98); PCO2 ARTERIAL 67 mmHG (35-45); PO2 ARTERIAL 66 mmHG (80-105)
[2016-12-14] MEDS: Budesonide 0.5 MG/2 ML Neb Susp NEB SCH (07:47)
[2016-12-14] MEDS: Formoterol/Mometasone 200-5 MCG 8.8 GM Inhaler IH SCH (07:47)
[2016-12-14] MEDS: Fenofibrate,Micronized 134 MG Cap PO SCH (07:47)
[2016-12-14] MEDS: Citalopram 20 MG Tab PO SCH (07:47)
[2016-12-14] MEDS: Magnesium Oxide 400 MG Tab PO SCH (07:47)
[2016-12-14] MEDS: Aspirin 325 MG Tab.EC PO SCH (07:47)
[2016-12-14] MEDS: amLODIPine 5 MG Tab PO SCH (07:48)
[2016-12-14] MEDS: Lisinopril 5 MG Tab PO SCH (07:48)
[2016-12-14] MEDS: Dextromethorphan/guaiFENesin 600-30 MG Tab.ER PO SCH (07:48)
[2016-12-14] MEDS: metFORMIN 500 MG Tab PO SCH (07:48)
[2016-12-14] MEDS: Furosemide 40 MG Tab PO SCH (07:48)
[2016-12-14] MEDS: Atenolol 25 MG Tab PO SCH (07:49)
[2016-12-14] MEDS: Tiotropium Inhaler 18 MCG Inhalation Powder Cap Kit of 5 INH SCH (07:49)
[2016-12-14] MEDS: buPROPion 150 MG Tab.ER PO SCH (07:49)
[2016-12-14] MEDS: THEOPHYLLINE ANHYDROUS 400 MG PO SCH (07:49)
[2016-12-14 13:30] VITALS: BP 153/97
--- NOTE | 2016-12-14 15:04 | PCM.PN ---
- General Info Date of Service: 12/14/16 Functional Status: Reports: tolerating diet - Review of Systems General: Reports: No Symptoms HEENT: Reports: no symptoms Pulmonary: Reports: no symptoms Cardiovascular: Reports: No Symptoms Gastrointestinal: Reports: No symptoms Genitourinary: Reports: no symptoms Musculoskeletal: Reports: no symptoms Skin: Reports: no symptoms Neurological: Reports: No Symptoms Psychiatric: Reports: no symptoms - Patient Data Vitals - most recent: Last Vital Signs Temp 98.8 F 12/14/16 12:00 Pulse 77 12/14/16 12:00 Resp 18 12/14/16 12:00 BP 153/97 H 12/14/16 12:00 Pulse Ox 93 L 12/14/16 12:00 Weight - most recent: 268 lb 8.016 oz I&O - last 24 hours: Intake & Output 12/13/16 12/14/16 12/14/16 22:59 06:59 14:59 Intake Total 400 1600 Output Total 300 1300 Balance -300 -900 1600 Lab Results last 24 hrs: Laboratory Results - last 24 hr 12/13/16 12/13/16 12/14/16 Range/Units 06:50 17:15 07:10 WBC 11.1 H (4.0-10.2) K/uL RBC 4.18 L (4.33-5.41) M/uL Hgb 12.0 L (13.1-16.8) g/dL Hct 39.5 (39.0-49.0) % MCV 94.5 D (84.0-98.0) fL MCH 28.7 (28.2-33.3) pg MCHC 30.4 L (31.7-36.0) g/dL RDW 13.5 (11.2-14.1) % Plt Count 216 (150-350) K/uL Neut % (Auto) 82.4 H (45.0-80.0) % Lymph % (Auto) 8.6 L (10.0-50.0) % [place] % (Auto) 7.7 (2.0-14.0) % Eos % (Auto) 1.1 (0.0-5.0) % Baso % (Auto) 0.2 (0.0-2.0) % Neut # (Auto) 9.15 H (1.40-7.00) K/uL Lymph # (Auto) 0.95 (0.50-3.50) K/uL [place] # (Auto) 0.85 (0.00-1.00) K/uL Eos # (Auto) 0.12 (0.00-0.50) K/uL Baso # (Auto) 0.02 (0.00-0.20) K/uL ABG pH 7.36 (7.35-7.45) ABG pCO2 74 H* (35-45) mmHG ABG pO2 72 L* (80-105) mmHG ABG HCO3 41.0 H (22-26) mmol/L ABG Total CO2 44 H (23-27) mmol/L ABG O2 Saturation 93 L (95-98) % ABG Base Excess 16 H (-2-3) mmol/L O2 Delivery Device Nasal cannula Sodium (136-145) mmol/L Potassium (3.5-5.1) mmol/L Chloride (98-107) mmol/L Carbon Dioxide (21.0-32.0) mmol/L BUN (7-18) mg/dL Creatinine (0.51-1.17) mg/dL Est Cr Clr Drug Dosing mL/min Estimated GFR (MDRD) mL/min Glucose (74-106) mg/dL Lactic Acid (0.4-2.0) mmol/L Calcium (8.5-10.1) mg/dL Transferrin 245 (180-329) mg/dL Total Bilirubin (0.2-1.0) mg/dL AST (15-37) U/L ALT (12-78) U/L Alkaline Phosphatase (46-116) IU/L C-Reactive Protein (<=0.9) mg/dL Total Protein (6.4-8.2) g/dL Albumin (3.4-5.0) g/dL Theophylline (10-20) ug/dL 12/14/16 12/14/16 12/14/16 Range/Units 07:10 07:10 07:30 WBC (4.0-10.2) K/uL RBC (4.33-5.41) M/uL Hgb (13.1-16.8) g/dL Hct (39.0-49.0) % MCV (84.0-98.0) fL MCH (28.2-33.3) pg MCHC (31.7-36.0) g/dL RDW (11.2-14.1) % Plt Count (150-350) K/uL Neut % (Auto) (45.0-80.0) % Lymph % (Auto) (10.0-50.0) % [place] % (Auto) (2.0-14.0) % Eos % (Auto) (0.0-5.0) % Baso % (Auto) (0.0-2.0) % Neut # (Auto) (1.40-7.00) K/uL Lymph # (Auto) (0.50-3.50) K/uL [place] # (Auto) (0.00-1.00) K/uL Eos # (Auto) (0.00-0.50) K/uL Baso # (Auto) (0.00-0.20) K/uL ABG pH 7.38 (7.35-7.45) ABG pCO2 67 H* (35-45) mmHG ABG pO2 66 L* (80-105) mmHG ABG HCO3 40.0 H (22-26) mmol/L ABG Total CO2 41 H (23-27) mmol/L ABG O2 Saturation 91 L (95-98) % ABG Base Excess 14 H (-2-3) mmol/L O2 Delivery Device Nasal cannula Sodium 139 (136-145) mmol/L Potassium 4.6 (3.5-5.1) mmol/L Chloride 100 (98-107) mmol/L Carbon Dioxide 34.3 H (21.0-32.0) mmol/L BUN 21 H (7-18) mg/dL Creatinine 1.29 H (0.51-1.17) mg/dL Est Cr Clr Drug Dosing 61.08 mL/min Estimated GFR (MDRD) 56 mL/min Glucose 112 H (74-106) mg/dL Lactic Acid 0.7 (0.4-2.0) mmol/L Calcium 8.7 (8.5-10.1) mg/dL Transferrin (180-329) mg/dL Total Bilirubin 0.4 (0.2-1.0) mg/dL AST 21 (15-37) U/L ALT 18 (12-78) U/L Alkaline Phosphatase 42 L (46-116) IU/L C-Reactive Protein 0.5 (<=0.9) mg/dL Total Protein 6.3 L (6.4-8.2) g/dL Albumin 3.1 L (3.4-5.0) g/dL Theophylline 6 L (10-20) ug/dL [place] Results last 24 hrs: Microbiology 12/12/16 22:30 MRSA (PCR) - Final Nasal, Unspecified Med Orders - Current: Current Medications Acetaminophen (Tylenol) 650 mg PO Q4H PRN PRN Reason: Pain (Mild 1-3)/fever Albuterol (Proventil Neb Soln) 2.5 mg INH Q2H PRN PRN Reason: SHORTNESS OF BREATH Albuterol/Ipratropium (Duoneb 3.0-0.5 Mg/3 Ml) 3 ml NEB Q4HRRT PRN PRN Reason: Dyspnea Last Admin: 12/12/16 22:07 Dose: 3 ml Albuterol/Ipratropium (Duoneb 3.0-0.5 Mg/3 Ml) 3 ml NEB Q6HRRT [facility] Last Admin: 12/14/16 13:22 Dose: 3 ml Amlodipine Besylate (Norvasc) 5 mg PO BID [facility] Last Admin: 12/14/16 07:48 Dose: 5 mg Aspirin (Ecotrin) 325 mg PO DAILY [facility] Last Admin: 12/14/16 07:47 Dose: 325 mg Atenolol (Tenormin) 25 mg PO DAILY [facility] Last Admin: 12/14/16 07:49 Dose: 25 mg Atorvastatin Calcium (Lipitor) 40 mg PO BEDTIME [facility] Last Admin: 12/13/16 20:01 Dose: 40 mg Budesonide (Pulmicort) 0.5 mg NEB BIDRT [facility] Last Admin: 12/14/16 07:47 Dose: 0.5 mg Bupropion HCl (Wellbutrin Xl) 150 mg PO DAILY [facility] Last Admin: 12/14/16 07:49 Dose: 150 mg Citalopram Hydrobromide (Celexa) 20 mg PO DAILY [facility] Last Admin: 12/14/16 07:47 Dose: 20 mg Fenofibrate (Fenofibrate) 134 mg PO DAILY [facility] Last Admin: 12/14/16 07:47 Dose: 134 mg Furosemide (Lasix) 40 mg PO DAILY [facility] Last Admin: 12/14/16 07:48 Dose: 40 mg Guaifenesin/Dextromethorphan (Mucinex Dm Er 600-30 Mg) 1 tab PO BID [facility] Last Admin: 12/14/16 07:48 Dose: 1 tab Lisinopril (Prinivil) 2.5 mg PO DAILY [facility] Last Admin: 12/14/16 07:48 Dose: 2.5 mg Magnesium Oxide (Magnesium Oxide) 400 mg PO DAILY [facility] Last Admin: 12/14/16 07:47 Dose: 400 mg Metformin HCl (Glucophage) 500 mg PO BIDMEALS [facility] Last Admin: 12/14/16 07:48 Dose: 500 mg Mometasone Furoate/Formoterol Fumar (Dulera 200-5 Mcg) 2 puff IH BID [facility] Last Admin: 12/14/16 07:47 Dose: 1 inh Theophylline [Jairo- (24] 200 Mg Capsule) 200 mg PO DAILY@1800 [facility] Last Admin: 12/13/16 17:49 Dose: 200 mg Theophylline Anhydrous [Jairo-24] 400 Mg Capsule 400 mg PO DAILY [facility] Last Admin: 12/14/16 07:49 Dose: 400 mg Sodium Chloride (Saline Flush) 10 ml FLUSH ASDIRECTED PRN PRN Reason: Keep Vein Open Last Admin: 12/13/16 20:03 Dose: 10 ml Sodium Chloride (Saline Flush) 10 ml FLUSH Q12H PRN PRN Reason: Keep Vein Open Temazepam (Restoril) 15 mg PO BEDTIME PRN PRN Reason: Insomnia Tiotropium [place] (Spiriva Handihaler) 0 mcg INH DAILY [facility] Last Admin: 12/14/16 07:49 Dose: 1 inhalation Discontinued Medications Famotidine (Pepcid) 40 mg IVPUSH ONETIME ONE Stop: 12/12/16 20:57 Last Admin: 12/12/16 21:02 Dose: 40 mg - Exam Quality Assessment: supplemental oxygen General: alert, oriented, cooperative, no acute distress HEENT: Mucous membr. moist/pink Neck: trachea midline Lungs: Normal respiratory effort, Decreased breath sounds, Other (wearing BiPap) Cardiovascular: Regular Rate, Regular Rhythm Abdomen: bowel sounds present, soft, no tenderness, no distension (Male) Exam: Deferred Back Exam: normal inspection Extremities: no calf tenderness Skin: warm, dry, intact Neurological: no new focal deficit Psy/Mental Status: alert, normal affect, normal mood - Problem List & Annotations (1) Acute hypercapnic respiratory failure SNOMED Code(s): 825992329 Code(s): J96.02 - ACUTE RESPIRATORY FAILURE WITH HYPERCAPNIA Status: Acute Priority: High Current Visit: Yes (2) Acute on chronic respiratory failure with hypercapnia SNOMED Code(s): 023579719, 749530876 Code(s): J96.22 - ACUTE AND CHRONIC RESPIRATORY FAILURE WITH HYPERCAPNIA Status: Acute Priority: High Current Visit: Yes - Problem List Review Problem List Initiated/Reviewed/Updated: Yes - My Orders Last 24 Hours: My Active Orders 12/14/16 14:47 Discontinue Telemetry Monitoring [Cardiac Monitoring Discontinue] [RC] Click To Edit Peripheral IV Discontinue [OM.PC] Routine - Plan Plan:: 12/13/16 Shoshana Concepcion MD Feeling better. Recheck ABG. Pulmonalogist recommends to adjust BIPap machine. 12/14/16 Shoshana Concepcion MD Feeling better. pCO2 67 improved on new setting of BiPap at 20-7. Ready to go home.
--- NOTE | 2016-12-14 15:06 | PCM.DCSUM1 ---
Discharge Summary - Discharge Data Discharge Date: 12/14/16 Discharge Disposition: Home, Self-Care 01 Condition: Good - Discharge Diagnosis/Problem(s) (1) Acute hypercapnic respiratory failure SNOMED Code(s): 767018495 ICD Code: J96.02 - ACUTE RESPIRATORY FAILURE WITH HYPERCAPNIA Status: Acute Priority: High Current Visit: Yes (2) Acute on chronic respiratory failure with hypercapnia SNOMED Code(s): 452005253, 736061298 ICD Code: J96.22 - ACUTE AND CHRONIC RESPIRATORY FAILURE WITH HYPERCAPNIA Status: Acute Priority: High Current Visit: Yes - Patient Instructions Diet: Regular Diet as Tolerated - Discharge Plan Home Medications: Home Meds Albuterol [Ventolin HFA] 2 puff INH Q4H 07/27/13 [History] Albuterol/Ipratropium [DuoNeb 3.0-0.5 MG/3 ML] 1 inhalation INH QID 07/27/13 [ History] Ascorbic Acid [Vitamin C] 500 mg PO DAILY 07/27/13 [History] Aspirin [Ecotrin] 325 mg PO DAILY 07/27/13 [History] Atenolol 25 mg PO DAILY 07/27/13 [History] Cholecalciferol (Vitamin D3) [Vitamin D3] 2,000 unit PO BID 07/27/13 [History] Citalopram [Citalopram HBr] 20 mg PO DAILY 07/27/13 [History] Fluticasone/Salmeterol [Advair 500-50] 1 puff INH BID 07/27/13 [History] Furosemide [Lasix] 40 mg PO DAILY 07/27/13 [History] Tiotropium [Spiriva HandiHaler] 1 inh INH DAILY 07/27/13 [History] amLODIPine [Norvasc] 5 mg PO BID 07/27/13 [History] metFORMIN HCl [Metformin HCl] 500 mg PO BID 07/27/13 [History] atorvaSTATin [Lipitor] 40 mg PO BEDTIME 04/23/15 [History] Fenofibrate,Micronized [Fenofibrate] 134 mg PO DAILY 01/14/16 [History] buPROPion HCl [Wellbutrin Xl] 150 mg PO DAILY 01/14/16 [History] Lisinopril [Prinivil] 2.5 mg PO DAILY 03/06/16 [History] Theophylline Anhydrous [Jairo-24] 400 mg PO DAILY 03/06/16 [History] Theophylline [Jairo-24] 200 mg PO 1800 09/20/16 [History] Forms: ED Department Discharge Referrals: Patricia Louis NP [Primary Care Provider] - - Discharge Summary/Plan Comment DC Time >30 min.: No Discharge Summary/Plan Comment: See your sleep apnea specialist as discussed. Keep BiPap settings at 20-7. - Patient Data Vitals - Most Recent: Last Vital Signs Temp 98.8 F 12/14/16 12:00 Pulse 77 12/14/16 12:00 Resp 18 12/14/16 12:00 BP 153/97 H 12/14/16 12:00 Pulse Ox 93 L 12/14/16 12:00 Weight - Most Recent: 268 lb 8.016 oz I&O - Last 24 hours: Intake & Output 12/14/16 12/14/16 12/14/16 06:59 14:59 22:59 Intake Total 400 1600 Output Total 1300 Balance -900 1600 Lab Results - Last 24 hrs: Laboratory Results - last 24 hr 12/13/16 12/13/16 12/14/16 Range/Units 06:50 17:15 07:10 WBC 11.1 H (4.0-10.2) K/uL RBC 4.18 L (4.33-5.41) M/uL Hgb 12.0 L (13.1-16.8) g/dL Hct 39.5 (39.0-49.0) % MCV 94.5 D (84.0-98.0) fL MCH 28.7 (28.2-33.3) pg MCHC 30.4 L (31.7-36.0) g/dL RDW 13.5 (11.2-14.1) % Plt Count 216 (150-350) K/uL Neut % (Auto) 82.4 H (45.0-80.0) % Lymph % (Auto) 8.6 L (10.0-50.0) % [place] % (Auto) 7.7 (2.0-14.0) % Eos % (Auto) 1.1 (0.0-5.0) % Baso % (Auto) 0.2 (0.0-2.0) % Neut # (Auto) 9.15 H (1.40-7.00) K/uL Lymph # (Auto) 0.95 (0.50-3.50) K/uL [place] # (Auto) 0.85 (0.00-1.00) K/uL Eos # (Auto) 0.12 (0.00-0.50) K/uL Baso # (Auto) 0.02 (0.00-0.20) K/uL ABG pH 7.36 (7.35-7.45) ABG pCO2 74 H* (35-45) mmHG ABG pO2 72 L* (80-105) mmHG ABG HCO3 41.0 H (22-26) mmol/L ABG Total CO2 44 H (23-27) mmol/L ABG O2 Saturation 93 L (95-98) % ABG Base Excess 16 H (-2-3) mmol/L O2 Delivery Device Nasal cannula Sodium (136-145) mmol/L Potassium (3.5-5.1) mmol/L Chloride (98-107) mmol/L Carbon Dioxide (21.0-32.0) mmol/L BUN (7-18) mg/dL Creatinine (0.51-1.17) mg/dL Est Cr Clr Drug Dosing mL/min Estimated GFR (MDRD) mL/min Glucose (74-106) mg/dL Lactic Acid (0.4-2.0) mmol/L Calcium (8.5-10.1) mg/dL Transferrin 245 (180-329) mg/dL Total Bilirubin (0.2-1.0) mg/dL AST (15-37) U/L ALT (12-78) U/L Alkaline Phosphatase (46-116) IU/L C-Reactive Protein (<=0.9) mg/dL Total Protein (6.4-8.2) g/dL Albumin (3.4-5.0) g/dL Theophylline (10-20) ug/dL 12/14/16 12/14/16 12/14/16 Range/Units 07:10 07:10 07:30 WBC (4.0-10.2) K/uL RBC (4.33-5.41) M/uL Hgb (13.1-16.8) g/dL Hct (39.0-49.0) % MCV (84.0-98.0) fL MCH (28.2-33.3) pg MCHC (31.7-36.0) g/dL RDW (11.2-14.1) % Plt Count (150-350) K/uL Neut % (Auto) (45.0-80.0) % Lymph % (Auto) (10.0-50.0) % [place] % (Auto) (2.0-14.0) % Eos % (Auto) (0.0-5.0) % Baso % (Auto) (0.0-2.0) % Neut # (Auto) (1.40-7.00) K/uL Lymph # (Auto) (0.50-3.50) K/uL [place] # (Auto) (0.00-1.00) K/uL Eos # (Auto) (0.00-0.50) K/uL Baso # (Auto) (0.00-0.20) K/uL ABG pH 7.38 (7.35-7.45) ABG pCO2 67 H* (35-45) mmHG ABG pO2 66 L* (80-105) mmHG ABG HCO3 40.0 H (22-26) mmol/L ABG Total CO2 41 H (23-27) mmol/L ABG O2 Saturation 91 L (95-98) % ABG Base Excess 14 H (-2-3) mmol/L O2 Delivery Device Nasal cannula Sodium 139 (136-145) mmol/L Potassium 4.6 (3.5-5.1) mmol/L Chloride 100 (98-107) mmol/L Carbon Dioxide 34.3 H (21.0-32.0) mmol/L BUN 21 H (7-18) mg/dL Creatinine 1.29 H (0.51-1.17) mg/dL Est Cr Clr Drug Dosing 61.08 mL/min Estimated GFR (MDRD) 56 mL/min Glucose 112 H (74-106) mg/dL Lactic Acid 0.7 (0.4-2.0) mmol/L Calcium 8.7 (8.5-10.1) mg/dL Transferrin (180-329) mg/dL Total Bilirubin 0.4 (0.2-1.0) mg/dL AST 21 (15-37) U/L ALT 18 (12-78) U/L Alkaline Phosphatase 42 L (46-116) IU/L C-Reactive Protein 0.5 (<=0.9) mg/dL Total Protein 6.3 L (6.4-8.2) g/dL Albumin 3.1 L (3.4-5.0) g/dL Theophylline 6 L (10-20) ug/dL [facility] Results - Last 24 hrs: Microbiology 12/12/16 22:30 MRSA (PCR) - Final Nasal, Unspecified Med Orders - Current: Current Medications Acetaminophen (Tylenol) 650 mg PO Q4H PRN PRN Reason: Pain (Mild 1-3)/fever Albuterol (Proventil Neb Soln) 2.5 mg INH Q2H PRN PRN Reason: SHORTNESS OF BREATH Albuterol/Ipratropium (Duoneb 3.0-0.5 Mg/3 Ml) 3 ml NEB Q4HRRT PRN PRN Reason: Dyspnea Last Admin: 12/12/16 22:07 Dose: 3 ml Albuterol/Ipratropium (Duoneb 3.0-0.5 Mg/3 Ml) 3 ml NEB Q6HRRT [facility] Last Admin: 12/14/16 13:22 Dose: 3 ml Amlodipine Besylate (Norvasc) 5 mg PO BID [facility] Last Admin: 12/14/16 07:48 Dose: 5 mg Aspirin (Ecotrin) 325 mg PO DAILY [facility] Last Admin: 12/14/16 07:47 Dose: 325 mg Atenolol (Tenormin) 25 mg PO DAILY [facility] Last Admin: 12/14/16 07:49 Dose: 25 mg Atorvastatin Calcium (Lipitor) 40 mg PO BEDTIME [facility] Last Admin: 12/13/16 20:01 Dose: 40 mg Budesonide (Pulmicort) 0.5 mg NEB BIDRT [facility] Last Admin: 12/14/16 07:47 Dose: 0.5 mg Bupropion HCl (Wellbutrin Xl) 150 mg PO DAILY [facility] Last Admin: 12/14/16 07:49 Dose: 150 mg Citalopram Hydrobromide (Celexa) 20 mg PO DAILY [facility] Last Admin: 12/14/16 07:47 Dose: 20 mg Fenofibrate (Fenofibrate) 134 mg PO DAILY [facility] Last Admin: 12/14/16 07:47 Dose: 134 mg Furosemide (Lasix) 40 mg PO DAILY [facility] Last Admin: 12/14/16 07:48 Dose: 40 mg Guaifenesin/Dextromethorphan (Mucinex Dm Er 600-30 Mg) 1 tab PO BID [facility] Last Admin: 12/14/16 07:48 Dose: 1 tab Lisinopril (Prinivil) 2.5 mg PO DAILY [facility] Last Admin: 12/14/16 07:48 Dose: 2.5 mg Magnesium Oxide (Magnesium Oxide) 400 mg PO DAILY [facility] Last Admin: 12/14/16 07:47 Dose: 400 mg Metformin HCl (Glucophage) 500 mg PO BIDMEALS [facility] Last Admin: 12/14/16 07:48 Dose: 500 mg Mometasone Furoate/Formoterol Fumar (Dulera 200-5 Mcg) 2 puff IH BID [facility] Last Admin: 12/14/16 07:47 Dose: 1 inh Theophylline [Jairo- (24] 200 Mg Capsule) 200 mg PO DAILY@1800 [facility] Last Admin: 12/13/16 17:49 Dose: 200 mg Theophylline Anhydrous [Jairo-24] 400 Mg Capsule 400 mg PO DAILY [facility] Last Admin: 12/14/16 07:49 Dose: 400 mg Sodium Chloride (Saline Flush) 10 ml FLUSH ASDIRECTED PRN PRN Reason: Keep Vein Open Last Admin: 12/13/16 20:03 Dose: 10 ml Sodium Chloride (Saline Flush) 10 ml FLUSH Q12H PRN PRN Reason: Keep Vein Open Temazepam (Restoril) 15 mg PO BEDTIME PRN PRN Reason: Insomnia Tiotropium [place] (Spiriva Handihaler) 0 mcg INH DAILY [facility] Last Admin: 12/14/16 07:49 Dose: 1 inhalation Discontinued Medications Famotidine (Pepcid) 40 mg IVPUSH ONETIME ONE Stop: 12/12/16 20:57 Last Admin: 12/12/16 21:02 Dose: 40 mg *Q Meaningful Use (DIS) - VTE *Q VTE Criteria *Q: - Stroke *Q Stroke Criteria *Q: - AMI *Q AMI Criteria *Q:
== END 2016-12-14 15:20 | disposition home or self-care (01) ==
LOC: LL.ED 19:13 → LL.MS 21:14
PROVIDERS: ADMIT Family Medicine; ATTEND Family Medicine
DX: J96.22 Acute and chronic respiratory failure with hypercapnia (principal); Z79.82 Long term (current) use of aspirin; Z79.84 Long term (current) use of oral hypoglycemic drugs; Z79.899 Other long term (current) drug therapy; I10 Essential (primary) hypertension; E78.00 Pure hypercholesterolemia, unspecified; I25.810 Atherosclerosis of coronary artery bypass graft(s) without angina pectoris; G47.30 Sleep apnea, unspecified; E11.22 Type 2 diabetes mellitus with diabetic chronic kidney disease; I13.0 Hypertensive heart and chronic kidney disease with heart failure and stage 1 through stage 4 chronic kidney disease, or unspecified chronic kidney disease; N18.9 Chronic kidney disease, unspecified; F41.8 Other specified anxiety disorders; E66.9 Obesity, unspecified; Z68.30 Body mass index [BMI] 30.0-30.9, adult; J44.9 Chronic obstructive pulmonary disease, unspecified; Z98.890 Other specified postprocedural states; F17.210 Nicotine dependence, cigarettes, uncomplicated
CPT/HCPCS: 36415; 71010; 80053; 80061; 80198; 82044; 82550; 82553; 82607; 82728; 82746; 82803; 83036; 83540; 83550; 83605; 83735; 83880; 84443; 84466; 84484; 84550; 85025; 85379; 85610; 85730; 86140; 86318; 87641; 93005; 94640; 94664; 96374; 99285; A9270; J7050; G0378; S0028

== ENCOUNTER 2016-12-28 22:11 | Inpatient (IN) | payer MEDICARE, OTHER ==
[2016-12-28] MEDS ORDERED: Famotidine 20 MG/2 ML SDV IVPUSH ONE (22:15)
[2016-12-28] MEDS ORDERED: Morphine 2 MG/ML Syringe ONE ×2 (22:19→23:30)
[2016-12-28] MEDS ORDERED: Budesonide 0.5 MG/2 ML Neb Susp NEB ONE (22:20)
--- NOTE | 2016-12-28 22:24 | EDM.PDOC ---
ED HPI GENERAL MEDICAL PROBLEM - General Chief Complaint: Respiratory Problem Stated Complaint: shortness of breath Time Seen by Provider: 12/28/16 22:11 Source of Information: Reports: Patient, Family (), Old records ([facility] chart/EMR) History Limitations: Reports: No limitations - History of Present Illness INITIAL COMMENTS - FREE TEXT/NARRATIVE: The patient was brought to the emergency room via automobile by his for evaluation of severe hypoxemia with progressive greenish productive cough since about 17:00 hours this afternoon. Note that his O2 sat fell into his 60th percentile on 4 L per minute by nasal cannula late this afternoon with the patient starting his BiPAP at 20:00 hours. His O2 sats only improved to about 80% with this therapy. No known exposure to infection, although the patient was recently hospitalized in this facility from 12/12 through 12/14/16 for respiratory failure and CO2 retention. 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 His home O2 equipment was also recently replaced by their respiratory providers. The patient denies any chest pain/pressure, heart flutter, dizziness, orthostasis, orthopnea, diaphoresis, paresthesias, recent decreased exercise tolerance, or any other anginal-type symptoms. No recent history of abdominal pain, heartburn, nausea, diarrhea, melena, gross hematochezia, or any food intolerance, including fatty foods, etc.. No apparent recent fever, antipyretic medication, etc., although the patient did take a DuoNeb treatment at 20:30 hours this evening with additional inhaler treatment immediately prior to arrival. No recent return of his previous confusion. Onset: today, sudden, gradual Onset Date: 12/28/16 Onset Time: 17:00 Duration: Getting worse Location: Reports: other (No pain) Quality: Reports: Same as previous episode Severity: severe (Hypoxemia) Improves with: Reports: None Worsens with: Reports: None Context: Reports: Other (As above) Associated Symptoms: Reports: cough, cough w sputum, diaphoresis, shortness of breath. 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 - Related Data Allergies Allergy/AdvReac Type Severity Reaction Status Date / Time No Known Allergies Allergy Verified 12/12/16 21:42 Home Meds: Home Meds Albuterol [Ventolin HFA] 2 puff INH Q4H 07/27/13 [History] Albuterol/Ipratropium [DuoNeb 3.0-0.5 MG/3 ML] 1 inhalation INH QID 07/27/13 [ History] Ascorbic Acid [Vitamin C] 500 mg PO DAILY 07/27/13 [History] Aspirin [Ecotrin] 325 mg PO DAILY 07/27/13 [History] Atenolol 25 mg PO DAILY 07/27/13 [History] Cholecalciferol (Vitamin D3) [Vitamin D3] 2,000 unit PO BID 07/27/13 [History] Citalopram [Citalopram HBr] 20 mg PO DAILY 07/27/13 [History] Fluticasone/Salmeterol [Advair 500-50] 1 puff INH BID 07/27/13 [History] Furosemide [Lasix] 40 mg PO DAILY 07/27/13 [History] Tiotropium [Spiriva HandiHaler] 1 inh INH DAILY 07/27/13 [History] amLODIPine [Norvasc] 5 mg PO BID 07/27/13 [History] metFORMIN HCl [Metformin HCl] 500 mg PO BID 07/27/13 [History] atorvaSTATin [Lipitor] 40 mg PO BEDTIME 04/23/15 [History] Fenofibrate,Micronized [Fenofibrate] 134 mg PO DAILY 01/14/16 [History] buPROPion HCl [Wellbutrin Xl] 150 mg PO DAILY 01/14/16 [History] Lisinopril [Prinivil] 2.5 mg PO DAILY 03/06/16 [History] Theophylline Anhydrous [Jairo-24] 400 mg PO DAILY 03/06/16 [History] Theophylline [Jairo-24] 200 mg PO 1800 09/20/16 [History] Past Medical History HEENT History: Reports: Hard of hearing, Impaired vision, Other (see below). Denies: Allergic rhinitis, Cataract, Glaucoma, Macular degeneration, Retinal detachment Other HEENT History: Glasses, beginning presbycusis with no therapy Cardiovascular History: Reports: Arrhythmia, Bypass, CAD, Heart Failure, High cholesterol, Hypertension, Pulmonary hypertension, SOB on exertion, Other (see below). Denies: Afib, Aneurysm, Blood clots/VTE/DVT, Heart murmur, AR, Pacemaker, PVD, Syncope Other Cardiovascular History: Known heart disease requiring bypass as below with no previous AR. Previous history of nonsymptomatic PACs, PVCs, incomplete right bundle-branch block, and sinus arrhythmia. Pulmonary hypertension by chest x-ray however negative echocardiogram with exception of grade 1 diastolic dysfunction on 04/27/15 Respiratory History: Reports: Bronchitis, recurrent, COPD, Intubation, previous , Pneumonia, recurrent, Pulmonary fibrosis, Sleep apnea, Other (see below). Denies: PE, Pneumothorax, TB Other Respiratory History: O2 dependent COPD with BiPAP therapy required, recurrent respiratory failure with history of CO2 retention and intubation and near fatal hypoxia in March 2016, bilateral multiple pulmonary nodules are benign in nature and followed by serial CT scans as below Gastrointestinal History: Reports: Chronic constipation, GERD, Helicobacter pylori. Denies: Celiac disease, Cholelithiasis, Colon polyp, Diverticulosis, Fecal incontinence, Gastritis, GI bleed, Hepatitis, Hiatal hernia, Inflammatory bowel disease, Irritable bowel syndrome, Jaundice, Pancreatitis, PUD Genitourinary History: Reports: Chronic renal insuffiency, Diabetic nephropathy , Other (see below). Denies: Acute renal failure, BPH, Renal calculus, Retention, urinary, STD, Urinary incontinence, UTI, recurrent Other Genitourinary History: Mild renal insufficiency/diabetic nephropathy diagnosed in August 2016 Musculoskeletal History: Reports: Arthritis, Osteoarthritis, Osteoporosis. Denies: Amputation, Back pain, chronic, Fracture, Fibromyalgia, Gout, Neck pain , chronic, RA, SLE Neurological History: Reports: None. Denies: Alzheimers disease, Cerebral aneurysms, Concussion, CVA, Headaches, chronic, Head trauma, Migraines, MS, Neuropathy, diabetic, Neuropathy, peripheral, Parkinson's, Seizure, TIA Psychiatric History: Reports: Anxiety, Depression. Denies: Abuse, victim of, ADD, ADHD, Addiction, Alzheimers disease, Psych Hospitalization(s), PTSD, Suicide attempt, Suicidal ideation Endocrine/Metabolic History: Reports: Diabetes, type II, Obesity/BMI 30+, Osteoporosis. Denies: Diabetes, type I, Hypothyroidism, IDDM Hematologic History: Reports: None. Denies: Anemia, Blood transfusion(s), Iron deficiency Immunologic History: Reports: None. Denies: AIDS, HIV, Immunosuppression, SLE Oncologic (Cancer) History: Reports: None. Denies: Basal cell carcinoma, Hodgkin's Lymphoma, Leukemia, Lymphoma, Malignant melanoma, Non-Hodgkin's Lymphoma, Prostate, Squamous cell carcinoma Dermatologic History: Reports: None. Denies: Eczema, Psoriasis, Venous stasis dermatitis - Infectious Disease History Infectious Disease History: Reports: Helicobacter pylori, MRSA (? Sputum). Denies: C-difficile, Chicken pox, Measles, Meningitis, Mononucleosis, Mumps, Pertussis (whooping cough), RSV, Rubella, Scarlet fever, Shingles, TB, VRE - Past Surgical History Head Surgeries/Procedures: Reports: None HEENT Surgical History: Reports: Oral surgery, Other (see below). Denies: Adenoidectomy, Eye surgery, Laser surgery, LASIK, Myringotomy w tube(s), Naso- sinus surgery, Tonsillectomy Other HEENT Surgeries/Procedures: Complete teeth extraction in about 2007 with upper and lower dentures only one remaining right lower tooth Cardiovascular Surgical History: Reports: Coronary artery bypass, Other (see below). Denies: Coronary artery stent, Percutaneous transluminal angioplasty, Varicose Other Cardiovascular Surgeries/Procedures: Four-vessel CABG in about 2006 Respiratory Surgical History: Reports: Lung Biopsies, Other (see below). Denies : Thoracentesis Other Respiratory Surgeries/Procedures: Apparent lung biopsy at time of CABG in 2006 with benign disease GI Surgical History: Reports: None. Denies: Appendectomy, Cholecystectomy, Colonoscopy, Hernia, abdominal, Hernia, inguinal, Hernia repair/other, Polypectomy Male Surgical History: Reports: Circumcision, Other (see below). Denies: TURP-Transurethral resection of prostate, Vasectomy Other Male Surgeries/Procedures: Circumcision as an infant Endocrine Surgical History: Reports: None Neurological Surgical History: Reports: None. Denies: C-Spine, Discectomy, Laminectomy, Lumbar spine, Spinal fusion, Vertebroplasty Musculoskeletal Surgical History: Reports: None. Denies: Arthroscopic knee, Arthroscopic procedure, Carpal tunnel, Ganglion cyst, Joint replacement, ORIF, Shoulder surgery Oncologic Surgical History: Reports: None Dermatological Surgical History: Reports: None - Past Imaging History Past Imaging History: Reports: Cardiac echo (Last echocardiogram at [facility] in February 2016 with results not available, however apparently normal. Previous echocardiogram on 9/1/15 with grade 1 diastolic dysfunction and ejection fraction of 60-65% with previous evaluation on 06/13/13), CAT scan (Chest on 11/16/16 with previous evaluation on 01/10/08), PFT (Last on 01/06/08), Stress testing (Low level cardiac stress test on 07/31/06) Social & Family History - Family History HEENT: Reports: None. Denies: Allergic rhinitis, Glaucoma, Macular degeneration , Retinal detachment Cardiac: Reports: CAD, Hypertension, AR, Other (see below). Denies: Afib, Aneurysm, Arrhythmia, Blood clots/VTE/DVT, Heart failure, High cholesterol, Pacemaker, PVD/COD, Syncope Other Cardiac Family History: Father with fatal AR at age 59, brother with fatal AR at age 47, hypertension in father and 2 brothers Respiratory: Reports: Asthma, COPD, Other (see below). Denies: PE, Pneumothorax , Sleep apnea Other Respiratory Family Hisory: Sister with fatal COPD in her 60s, sister with asthma GI: Reports: None. Denies: Celiac disease, Cholelithiasis, Colon polyps, GERD, GI bleed, Hepatitis, Inflammatory bowel disease, Irritable bowel syndrome, Pancreatitis, PUD : Reports: None. Denies: Dialysis, Renal calculus, Renal disease/ insufficiency OBGYN: Reports: None. Denies: Dysfunctional uterine bleeding, Endometriosis, Recurrent spontaneous Musculoskeletal: Reports: Arthritis, SLE, Other (see below). Denies: Gout, RA Other Musculoskeletal Family History: Sister with fatal SLE at age 47 Neurological: Reports: None. Denies: Alzheimers disease, Cerebral aneurysms, CVA, Dementia, Migraines, MS, Parkinson's, Seizure, TIA Psychiatric: Reports: Anxiety, Depression, Other (see below). Denies: Abuse, victim of, ADD, ADHD, PTSD, Suicide attempt Other Psychiatric Family History: Anxiety depression disorder in mother, sister , and brother Endocrine/Metabolic: Reports: Diabetes, type II, IDDM, Other (see below). Denies: Diabetes, type I, Hypothyroidism Other Endocrine/Metabolic Family History: Diabetes mellitus in 2 sisters and his mother with his mother requiring insulin supplementation Hematologic: Reports: SLE, Other (see below). Denies: Anemia, B12 deficiency Other Hematologic Family History: Sister with SLE Immunologic: Reports: SLE, Other (see below) Other Immunologic Family History: Sister with SLE Dermatologic: Reports: None. Denies: Eczema, Psoriasis Oncologic: Reports: Esophageal, Metastatic, Other (see below). Denies: Colon, Hodgkin's lymphoma, Leukemia, Lymphoma, Non-Hodgkin's lymphoma, Prostate, Skin Other Oncologic Family History: Sister with fatal esophageal cancer with pulmonary metastases at age 63 with history of tobacco use - Tobacco Use Smoking Status *Q: Current Every Day Smoker Years of Tobacco use: 41 Packs/Tins Daily: 1.5 (Stopped smoking in September 2016 with previous maximum use of 3 packs per day) Used Tobacco, but Quit: Yes Month Tobacco Last Used: As above Smoking Cessation Information Provided To Patient: No Second Hand Smoke Exposure: No Second Hand Smoke Education Provided: No - Caffeine Use Caffeine Use: Reports: Coffee (1-2 cups per day), Tea (6 cups of green tea per day). 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) ED ROS GENERAL - Review of Systems Review Of Systems: See Below Constitutional: Reports: no symptoms. Denies: fever, chills, weakness, fatigue , night sweats, diaphoresis, decreased appetite, weight loss, weight gain HEENT: Reports: No symptoms. Denies: Dental pain, Ear pain, Eye pain, Hearing loss, Rhinitis, Sinus problem, Throat pain, Throat swelling, Vertigo, Vision change Respiratory: Reports: Shortness of Breath, Wheezing, Cough, Sputum. Denies: Pleuritic Chest Pain, Hemoptysis Cardiovascular: Reports: Dyspnea on exertion. Denies: Chest pain, Blood pressure problem, Claudication, Edema, Lightheadedness, Orthopnea, Palpitations Endocrine: Reports: no symptoms. Denies: fatigue GI/Abdominal: Reports: No symptoms. Denies: Abdominal pain, Anorexia, Bloody stool, Constipation, Diarrhea, Decreased appetite, Difficulty swallowing, Distension, Flatus, Hematochezia, Melena, Mucous in stool, Nausea, Stool incontinence, Vomiting : Reports: no symptoms. Denies: discharge, dysuria, flank pain, frequency, hematuria, incontinence, urinary retention Musculoskeletal: Reports: no symptoms. Denies: neck pain, shoulder pain, arm pain, back pain, leg pain Skin: Reports: diaphoresis (Mild). Denies: cyanosis, jaundice, pallor, wound Neurological: Reports: No Symptoms. Denies: Confusion, Dizziness, Headache, Numbness, Paresthesia, Tingling, Weakness Psychiatric: Reports: No symptoms. Denies: Agitation, Anxiety, Confusion, Depression, Hallucinations Hematologic/Lymphatic: Reports: no symptoms Immunologic: Reports: no symptoms ED EXAM, GENERAL - Physical Exam Exam: See Below Exam Limited By: No limitations General Appearance: alert, WD/WN, no apparent distress Eye Exam: bilateral eye: EOMI, normal inspection (No nystagmus), PERRL Ears: normal external exam, normal canal, hearing grossly normal, normal TMs Nose: normal mucosa, no blood, clear rhinorrhea Throat/Mouth: Normal inspection, Normal lips, Normal gums, Normal oropharynx, Normal voice, No airway compromise. No: Normal teeth (Complete absent dentition with exception of one lower tooth with patient not having his dentures today), Dysphagia, Inflammation, Perioral cyanosis Head: atraumatic, normocephalic. No: facial swelling, facial tenderness, sinus tenderness Neck: normal inspection, supple, non-tender, full range of motion. No: carotid bruit, lymphadenopathy (L), lymphadenopathy (R), thyromegaly Respiratory/Chest: no respiratory distress, no accessory muscle use, chest non- tender, rales (Mild Bilateral basilar rales), rhonchi (Mild to moderate), wheezing (Mild to moderate diffuse). No: pleural rub, retractions Cardiovascular: normal peripheral pulses, regular rate, rhythm (Although occasional sinus arrhythmia), no edema, no gallop, no JVD, no murmur, no rub. No: gallop/S3, gallop/S4, friction rub Peripheral Pulses: 2+: radial (L), radial (R), dorsalis pedis (L), dorsalis pedis (R) GI/Abdominal: normal bowel sounds, soft, non tender, no organomegaly, no distention, no abnormal bruit, no mass, other (Obese). No: guarding (Male) Exam: Deferred Rectal (Males) Exam: Deferred Back Exam: normal inspection, full range of motion. No: CVA tenderness (L), CVA tenderness (R), muscle spasm Extremities: normal inspection, normal range of motion, non-tender, normal capillary refill, no pedal edema Neurological: alert, oriented, CN II-XII intact, normal cognition, normal gait, normal reflexes (Negative Babinski's), no motor/sensory deficits Psychiatric: normal affect, normal mood Skin Exam: Warm, Dry, Intact, Normal color, No rash. No: Diaphoretic, Wound/ incision Lymphatic: no adenopathy EKG INTERPRETATION EKG Date: 12/28/16 Time: 22:34 Rhythm: NSR (Mild sinus arrhythmia, borderline tachycardia) Rate (beats/min): 101 [place]: normal (Neutral) P-wave: present (Mild diffuse biphasic P waves with poor R-wave progression in the anterior leads) QRS: normal (Questionable 0.10 seconds representing repolarization changes) ST-T: normal QT: normal [place]/PQ Interval: 0.16 seconds Comparison: no change (Last EKG on 12/13/16) EKG Interpretation Comments: No acute ischemic changes Course - Vital Signs Last Recorded V/S: Last Vital Signs Temp 37.4 C 12/28/16 22:15 Pulse 95 12/28/16 23:30 Resp 19 12/28/16 23:30 BP 152/64 H 12/28/16 23:30 Pulse Ox 97 12/28/16 23:30 Vital Signs - 24 hr 12/28/16 12/28/16 12/28/16 22:15 22:30 22:45 Temperature [ 37.4 C Oral] Pulse, 96 101 H 99 Peripheral [ Left Pulse Oximetry] Respiratory 24 H 25 H 21 H Rate Blood Pressure 150/93 H 145/73 H [Right Upper Arm] O2 Sat by Pulse 89 L 90 L 88 L Oximetry 12/28/16 12/28/16 12/28/16 23:00 23:15 23:30 Temperature [ Oral] Pulse, 98 104 H 95 Peripheral [ Left Pulse Oximetry] Respiratory 21 H 20 19 Rate Blood Pressure 157/99 H 124/80 152/64 H [Right Upper Arm] O2 Sat by Pulse 90 L 84 L 97 Oximetry - Orders/Labs/Meds Orders: Active Orders 24 hr Category Date Time Status Cardiac Monitoring [RC] . DIRECTED Care 12/28/16 22:16 Active EKG Documentation Completion [RC] ASDIRECTED Care 12/28/16 22:16 Active Oxygen Therapy, ED [RC] CONTINUOUS Care 12/28/16 22:16 Active Peripheral IV Care [RC] . DIRECTED Care 12/28/16 22:16 Active Pulse Oximetry [RC] CONTINUOUS Care 12/28/16 22:16 Active RT Aerosol Therapy [RC] ASDIRECTED Care 12/28/16 22:19 Active RT Aerosol Therapy [RC] ASDIRECTED Care 12/28/16 22:20 Active Up With Assistance [RC] PFP Care 12/28/16 22:16 Active Vital Signs [RC] PFP Care 12/28/16 22:16 Active Nothing per Oral Now Diet [DIET] Diet 12/28/16 Breakfast Active Chest 1V Frontal [CR] Stat Exams 12/28/16 22:16 Taken CULTURE BLOOD [BC] Stat Lab 12/28/16 22:30 Received CULTURE BLOOD [BC] Stat Lab 12/28/16 22:45 Received CULTURE SPUTUM + SMEAR [RM] Routine Lab 12/28/16 22:23 Received Albuterol [Proventil Neb Soln] Med 12/28/16 22:19 Active 2.5 mg INH Q2H PRN Sodium Chloride 0.9% [Saline Flush] Med 12/28/16 22:15 Active 10 ml FLUSH ASDIRECTED PRN Blood Culture x2 Reflex Set [OM.PC] Urgent Oth 12/28/16 22:17 Ordered Obtain Past Medical Record [OM.PC] Urgent Oth 12/28/16 22:16 Active Peripheral IV Insertion Adult [OM.PC] Stat Oth 12/28/16 22:16 Ordered Resuscitation Status Stat Resus Stat 12/28/16 22:15 Ordered Medication Orders Albuterol (Proventil Neb Soln) 2.5 mg INH Q2H PRN PRN Reason: SHORTNESS OF BREATH Sodium Chloride (Saline Flush) 10 ml FLUSH ASDIRECTED PRN PRN Reason: Keep Vein Open Last Admin: 12/28/16 22:33 Dose: 10 ml Labs: Laboratory Tests 12/28/16 12/28/16 12/28/16 Range/Units 22:30 22:30 22:30 WBC 23.0 H (4.0-10.2) K/uL RBC 4.18 L (4.33-5.41) M/uL Hgb 11.9 L (13.1-16.8) g/dL Hct 40.8 (39.0-49.0) % MCV 97.6 D (84.0-98.0) fL MCH 28.5 (28.2-33.3) pg MCHC 29.2 L (31.7-36.0) g/dL RDW 13.8 (11.2-14.1) % Plt Count 336 D (150-350) K/uL Neut % (Auto) 86.7 H (45.0-80.0) % Lymph % (Auto) 5.5 L (10.0-50.0) % [place] % (Auto) 7.3 (2.0-14.0) % Eos % (Auto) 0.3 (0.0-5.0) % Baso % (Auto) 0.2 (0.0-2.0) % Neut # (Auto) 19.96 H (1.40-7.00) K/uL Lymph # (Auto) 1.26 (0.50-3.50) K/uL [place] # (Auto) 1.67 H (0.00-1.00) K/uL Eos # (Auto) 0.08 (0.00-0.50) K/uL Baso # (Auto) 0.04 (0.00-0.20) K/uL PT 10.4 (9.8-11.7) SEC INR 1.0 APTT 27.5 (23.5-30.0) SEC D-Dimer, Quantitative < 100 (0-400) ng/mL Sodium (136-145) mmol/L Potassium (3.5-5.1) mmol/L Chloride (98-107) mmol/L Carbon Dioxide (21.0-32.0) mmol/L BUN (7-18) mg/dL Creatinine (0.51-1.17) mg/dL Est Cr Clr Drug Dosing Estimated GFR (MDRD) mL/min Glucose (74-106) mg/dL Lactic Acid (0.4-2.0) mmol/L Uric Acid (2.6-7.2) mg/dL Calcium (8.5-10.1) mg/dL Magnesium (1.8-2.4) mg/dL Total Bilirubin (0.2-1.0) mg/dL AST (15-37) U/L ALT (12-78) U/L Alkaline Phosphatase (46-116) IU/L Creatine Kinase (26-308) U/L Creatine Kinase Index (0.0-2.5) % CK-MB (CK-2) (0.00-3.60) ng/mL Troponin I (0.000-0.056) ng/mL Tdi-M-Ybhytfktdrb Pept (0-125) pg/mL Total Protein (6.4-8.2) g/dL Albumin (3.4-5.0) g/dL TSH, Ultra Sensitive (0.358-3.740) mIU/mL H. pylori IgG Antibody (NEGATIVE) 12/28/16 12/28/16 12/28/16 Range/Units 22:30 22:30 22:30 WBC (4.0-10.2) K/uL RBC (4.33-5.41) M/uL Hgb (13.1-16.8) g/dL Hct (39.0-49.0) % MCV (84.0-98.0) fL MCH (28.2-33.3) pg MCHC (31.7-36.0) g/dL RDW (11.2-14.1) % Plt Count (150-350) K/uL Neut % (Auto) (45.0-80.0) % Lymph % (Auto) (10.0-50.0) % [place] % (Auto) (2.0-14.0) % Eos % (Auto) (0.0-5.0) % Baso % (Auto) (0.0-2.0) % Neut # (Auto) (1.40-7.00) K/uL Lymph # (Auto) (0.50-3.50) K/uL [place] # (Auto) (0.00-1.00) K/uL Eos # (Auto) (0.00-0.50) K/uL Baso # (Auto) (0.00-0.20) K/uL PT (9.8-11.7) SEC INR APTT (23.5-30.0) SEC D-Dimer, Quantitative (0-400) ng/mL Sodium 138 (136-145) mmol/L Potassium 4.1 (3.5-5.1) mmol/L Chloride 98 (98-107) mmol/L Carbon Dioxide 38.3 H (21.0-32.0) mmol/L BUN 28 H (7-18) mg/dL Creatinine 1.29 H (0.51-1.17) mg/dL Est Cr Clr Drug Dosing TNP Estimated GFR (MDRD) 56 mL/min Glucose 187 H (74-106) mg/dL Lactic Acid 1.6 (0.4-2.0) mmol/L Uric Acid 6.0 (2.6-7.2) mg/dL Calcium 8.9 (8.5-10.1) mg/dL Magnesium 1.4 L (1.8-2.4) mg/dL Total Bilirubin 0.3 (0.2-1.0) mg/dL AST 17 (15-37) U/L ALT 21 (12-78) U/L Alkaline Phosphatase 56 (46-116) IU/L Creatine Kinase 103 (26-308) U/L Creatine Kinase Index 3.9 H* (0.0-2.5) % CK-MB (CK-2) 4.00 H (0.00-3.60) ng/mL Troponin I 0.012 (0.000-0.056) ng/mL Mai-T-Qeavugmnwck Pept 222 H (0-125) pg/mL Total Protein 7.0 (6.4-8.2) g/dL Albumin 3.4 (3.4-5.0) g/dL TSH, Ultra Sensitive 2.402 (0.358-3.740) mIU/mL H. pylori IgG Antibody Positive H (NEGATIVE) Blood cultures x2 collected Sputum specimen collected for culture and sensitivity Meds: Medications Generic Name Dose Route Start Last Admin Trade Name Freq PRN Reason Stop Dose Admin Albuterol 2.5 mg 12/28/16 22:19 Proventil Neb Soln INH Q2H PRN SHORTNESS OF BREATH Sodium Chloride 10 ml 12/28/16 22:15 12/28/16 22:33 Saline Flush FLUSH 10 ml ASDIRECTED PRN Administration Keep Vein Open Discontinued Medications Generic Name Dose Route Start Last Admin Trade Name Brigida PRN Reason Stop Dose Admin Budesonide 0.5 mg 12/28/16 22:20 12/28/16 22:32 Pulmicort NEB 12/28/16 22:21 0.5 mg ONETIME ONE Administration Famotidine 40 mg 12/28/16 22:15 12/28/16 22:32 Pepcid IVPUSH 12/28/16 22:16 40 mg ONETIME ONE Administration Ceftriaxone Sodium 2 gm/ 100 mls @ 200 mls/hr 12/28/16 22:59 12/28/16 23:07 Sodium Chloride IV 12/28/16 23:28 200 mls/hr ONETIME ONE Administration Morphine Sulfate 2 mg 12/28/16 22:19 12/28/16 22:28 Morphine .XX 12/28/16 22:20 2 mg ONETIME ONE Administration Morphine Sulfate 2 mg 12/28/16 23:30 12/28/16 23:34 Morphine .XX 12/28/16 23:31 2 mg ONETIME ONE Administration - Radiology Interpretation Free Text/Narrative:: Heart rate monitor showed mild sinus arrhythmia with heart rate in the 90s to low 100s initially with no other significant ectopy or arrhythmia Chest x-ray, portable, showed evidence of borderline mild right pleural effusion versus atelectasis with status post medial sternotomy. Moderate to severe COPD and pulmonary fibrotic changes with probable pulmonary hypertension and mild left lower lobe pulmonary infiltrates. No significant cardiomegaly or CHF Departure - Departure Time of Disposition: 23:50 Disposition: Admitted As Inpatient 65 Condition: good Clinical Impression: COPD, Severe chronic obstructive pulmonary disease, Renal insufficiency, Peptic reflux disease, Hypoxemia Coronary artery disease Qualifiers: Coronary Disease-Associated Artery/Lesion type: bypass graft, autologous artery Associated angina: without angina Qualified Code(s): I25.810 - Atherosclerosis of coronary artery bypass graft(s) without angina pectoris Diabetes mellitus Qualifiers: Diabetes mellitus type: type 2 Diabetes mellitus complication status: without complication Diabetes mellitus prison insulin use: without tobacco drummer use Qualified Code(s): E11.9 - Type 2 diabetes mellitus without complications Anemia Qualifiers: Anemia type: unspecified type Qualified Code(s): D64.9 - Anemia, unspecified CHF (congestive heart failure) Qualifiers: Congestive heart failure type: diastolic Congestive heart failure chronicity: acute on chronic Qualified Code(s): I50.33 - Acute on chronic diastolic ( congestive) heart failure Pneumonia Qualifiers: Pneumonia type: due to unspecified organism Laterality: right Lung location: middle lobe of lung Qualified Code(s): J18.1 - Lobar pneumonia, unspecified organism Hypertension Qualifiers: Hypertension type: essential hypertension Qualified Code(s): I10 - Essential ( primary) hypertension - Problem List & Annotations (1) Pneumonia SNOMED Code(s): 788030960 Code(s): J18.9 - PNEUMONIA, UNSPECIFIED ORGANISM Status: Acute Priority: High Current Visit: Yes Onset Date: ~09/17/16 Annotation/Comment:: Secondary to significant leukocytosis and recent hypoxia high-dose IV Rocephin initiated in the emergency room with additional IV Levaquin during this hospitalization. Blood cultures x2 were collected. Sputum for culture and sensitivity was also collected in the emergency room. Aggressive nebulizer therapy in the emergency room as above. Note long history of severe COPD and CO2 retention, although O2 sats did improve with emergency room care. Qualifiers: Pneumonia type: due to unspecified organism Laterality: right Lung location: middle lobe of lung Qualified Code(s): J18.1 - Lobar pneumonia, unspecified organism (2) CHF (congestive heart failure) SNOMED Code(s): 00849620 Code(s): I50.9 - HEART FAILURE, UNSPECIFIED Status: Acute Priority: High Current Visit: Yes Onset Date: 03/06/16 Annotation/Comment:: Only mildly elevated BNP and borderline centralized CHF by chest x-ray. No recent chest pain or anginal-type symptoms despite mildly elevated cardiac index with mild change in troponin I, which is still normal. Note previous history of mild diastolic dysfunction by echocardiogram as above. Consider repeat echocardiogram, heart catheterization, etc. depending on his clinical course. Cardiac enzymes and EKG to be repeated in the a.m. Qualifiers: Congestive heart failure type: diastolic Congestive heart failure chronicity: acute on chronic Qualified Code(s): I50.33 - Acute on chronic diastolic (congestive) heart failure (3) Hypoxemia SNOMED Code(s): 059243294 Code(s): R09.02 - HYPOXEMIA Status: Chronic Priority: Medium Current Visit: Yes Annotation/Comment:: Progressive hypoxia today as above. Initial attempts to use patient's own BiPAP machine were not successful in the emergency room with our internal BiPAP machine to be used for therapy initially. (4) Anemia SNOMED Code(s): 686944437 Code(s): D64.9 - ANEMIA, UNSPECIFIED Status: Acute Priority: Medium Current Visit: Yes Onset Date: 09/21/16 Annotation/Comment:: History of anemia in the past with only borderline anemia today. Note newly diagnosed H. pylori infection with recent hospitalization but no direct evidence of acute GI bleed. Per their history Dr. Mirza recommended observation for now. Consider further GI workup depending on his clinical course. Patient has not yet had a colonoscopy, which is advisable along with probable EGD once his cardiac status and pulmonary status have stabilized, however note significant disease and significant risk factor with these procedures. Qualifiers: Anemia type: unspecified type Qualified Code(s): D64.9 - Anemia, unspecified (5) Peptic reflux disease SNOMED Code(s): 74334428 Code(s): K21.9 - GASTRO-ESOPHAGEAL REFLUX DISEASE WITHOUT ESOPHAGITIS Status: Chronic Priority: Medium Current Visit: Yes Onset Date: 12/12/16 Annotation/Comment:: Newly diagnosed H. pylori infection as above. IV Pepcid given in the ER (6) Renal insufficiency SNOMED Code(s): 354953127, 104007327 Code(s): N28.9 - DISORDER OF KIDNEY AND URETER, UNSPECIFIED Status: Acute Priority: Medium Current Visit: Yes Onset Date: 09/21/16 Annotation/ Comment:: Mild renal insufficiency relatively stable today. Possible beginning diabetic nephropathy. Observe closely with repeat blood work in the a.m.. (7) COPD, Severe chronic obstructive pulmonary disease SNOMED Code(s): 104326970 Code(s): J44.9 - CHRONIC OBSTRUCTIVE PULMONARY DISEASE, UNSPECIFIED Status : Chronic Priority: High Current Visit: Yes Annotation/Comment:: Severe O2 dependent COPD and sleep apnea, including oxygen and BiPAP therapy. Additional history of recurrent CO2 retention as above. ABGs depending on his clinical course. Theophylline level in the a.m. (8) Coronary artery disease SNOMED Code(s): 80445527 Code(s): I25.10 - ATHSCL HEART DISEASE OF [place] CORONARY ARTERY W/O ANG PCTRS Status: Chronic Priority: High Current Visit: Yes Annotation/ Comment:: No chest pain or anginal complaints recently as above. Chest pain protocol not initiated in the emergency room secondary to absence of anginal complaints. Repeat EKG, blood work, etc. in the a.m. as above Qualifiers: Coronary Disease-Associated Artery/Lesion type: bypass graft, autologous artery Associated angina: without angina Qualified Code(s): I25.810 - Atherosclerosis of coronary artery bypass graft(s) without angina pectoris (9) Diabetes mellitus SNOMED Code(s): 79364523 Code(s): E11.9 - TYPE 2 DIABETES MELLITUS WITHOUT COMPLICATIONS Status: Chronic Priority: Medium Current Visit: Yes Annotation/Comment:: Glycosylated hemoglobin during last hospitalization showed adequate control, although the patient does not take Accu-Cheks frequently at home Qualifiers: Diabetes mellitus type: type 2 Diabetes mellitus complication status: without complication Diabetes mellitus prison insulin use: without prison use Qualified Code(s): E11.9 - Type 2 diabetes mellitus without complications (10) Hypertension SNOMED Code(s): 06577688 Code(s): I10 - ESSENTIAL (PRIMARY) HYPERTENSION Status: Chronic Priority : Medium Current Visit: Yes Annotation/Comment:: Blood pressures stable. Qualifiers: Hypertension type: essential hypertension Qualified Code(s): I10 - Essential (primary) hypertension (11) H. pylori infection SNOMED Code(s): 210191587 Code(s): A04.8 - OTHER SPECIFIED BACTERIAL INTESTINAL INFECTIONS Status: Acute Priority: Medium Current Visit: Yes Onset Date: 12/12/16 Annotation/Comment:: As above (12) Pulmonary hypertension SNOMED Code(s): 58145942 Code(s): I27.2 - OTHER SECONDARY PULMONARY HYPERTENSION Status: Chronic Priority: High Current Visit: Yes Annotation/Comment:: Morphine nebulizer treatments given in the emergency room (13) Hyperlipidemia SNOMED Code(s): 14116515 Code(s): E78.5 - HYPERLIPIDEMIA, UNSPECIFIED Status: Chronic Priority: Medium Current Visit: Yes Annotation/Comment:: Currently under therapy. Lipid panel conducted during recent hospitalization Qualifiers: Hyperlipidemia type: mixed hyperlipidemia Qualified Code(s): E78.2 - Mixed hyperlipidemia - Problem List Review Problem List Initiated/Reviewed/Updated: Yes - My Orders Last 24 Hours: My Active Orders 12/28/16 22:15 Sodium Chloride 0.9% [Saline Flush] 10 ml FLUSH ASDIRECTED PRN Resuscitation Status Stat 12/28/16 22:16 Cardiac Monitoring [RC] . DIRECTED EKG Documentation Completion [RC] ASDIRECTED Oxygen Therapy, ED [RC] CONTINUOUS Peripheral IV Care [RC] . DIRECTED Pulse Oximetry [RC] CONTINUOUS Up With Assistance [RC] PFP Vital Signs [RC] PFP Chest 1V Frontal [CR] Stat Obtain Past Medical Record [OM.PC] Urgent Peripheral IV Insertion Adult [OM.PC] Stat 12/28/16 22:17 Blood Culture x2 Reflex Set [OM.PC] Urgent 12/28/16 22:19 RT Aerosol Therapy [RC] ASDIRECTED Albuterol [Proventil Neb Soln] 2.5 mg INH Q2H PRN 12/28/16 22:20 RT Aerosol Therapy [RC] ASDIRECTED 12/28/16 22:23 CULTURE SPUTUM + SMEAR [RM] Routine 12/28/16 22:30 CULTURE BLOOD [BC] Stat 12/28/16 22:45 CULTURE BLOOD [BC] Stat 12/28/16 Breakfast Nothing per Oral Now Diet [DIET] - Assessment/Plan Admission H&P: Please use this note as an admission H&P Last 24 Hours: My Active Orders 12/28/16 22:15 Sodium Chloride 0.9% [Saline Flush] 10 ml FLUSH ASDIRECTED PRN Resuscitation Status Stat 12/28/16 22:16 Cardiac Monitoring [RC] . DIRECTED EKG Documentation Completion [RC] ASDIRECTED Oxygen Therapy, ED [RC] CONTINUOUS Peripheral IV Care [RC] . DIRECTED Pulse Oximetry [RC] CONTINUOUS Up With Assistance [RC] PFP Vital Signs [RC] PFP Chest 1V Frontal [CR] Stat Obtain Past Medical Record [OM.PC] Urgent Peripheral IV Insertion Adult [OM.PC] Stat 12/28/16 22:17 Blood Culture x2 Reflex Set [OM.PC] Urgent 12/28/16 22:19 RT Aerosol Therapy [RC] ASDIRECTED Albuterol [Proventil Neb Soln] 2.5 mg INH Q2H PRN 12/28/16 22:20 RT Aerosol Therapy [RC] ASDIRECTED 12/28/16 22:23 CULTURE SPUTUM + SMEAR [RM] Routine 12/28/16 22:30 CULTURE BLOOD [BC] Stat 12/28/16 22:45 CULTURE BLOOD [BC] Stat 12/28/16 Breakfast Nothing per Oral Now Diet [DIET] Assessment:: As above Plan: As above. Extensive precautions were given to the patient and his , who are in agreement with the treatment plan. The patient will require about 3-4 days of inpatient/acute care secondary to multiple health problems as above. [facility] [place] assumes care in the a.m.
[2016-12-28] MEDS: Sodium Chloride 0.9% 10 ML Syringe FLUSH PRN (22:33)
[2016-12-28 22:57] LABS: CHLORIDE,CL 98 mmol/L (98-107); SODIUM,NA 138 mmol/L (136-145)
[2016-12-28] MEDS ORDERED: cefTRIAXone 2 GM in Sodium Chloride 0.9% 100 ML IV ONE (22:59)
[2016-12-29] MEDS ORDERED: Acetaminophen 325 MG Tab PO PRN (00:10)
[2016-12-29] MEDS ORDERED: Sodium Chloride 0.9% 10 ML Syringe FLUSH PRN (00:10)
[2016-12-29] MEDS ORDERED: Temazepam 15 MG Cap PO PRN (00:10)
[2016-12-29] MEDS: Dextromethorphan/guaiFENesin 600-30 MG Tab.ER PO SCH ×2 (00:26→07:53)
[2016-12-29] MEDS: Ciprofloxacin in D5W 200 MG in Premix Bag 1 BAG IV SCH ×4 (00:26→07:57)
[2016-12-29] MEDS: Morphine 2 MG/ML Syringe PRN ×3 (01:25→08:59)
[2016-12-29] MEDS: Sodium Chloride 0.9% 10 ML Syringe FLUSH PRN ×5 (01:26→10:28)
[2016-12-29] MEDS: Albuterol 0.083% 2.5 MG/3 ML Neb Soln INH PRN ×3 (01:59→09:45)
[2016-12-29] MEDS: Albuterol/Ipratropium 3.0-0.5 MG/3 ML Neb Soln NEB SCH ×2 (03:30→07:58)
[2016-12-29] MEDS ORDERED: metFORMIN 500 MG Tab PO SCH (07:30)
[2016-12-29] MEDS ORDERED: Furosemide 40 MG Tab PO SCH (08:00)
[2016-12-29] MEDS ORDERED: Tiotropium Inhaler 18 MCG Inhalation Powder Cap Kit of 5 INH SCH (08:00)
[2016-12-29] MEDS ORDERED: Lisinopril 5 MG Tab PO SCH (08:00)
[2016-12-29] MEDS ORDERED: Aspirin 325 MG Tab.EC PO SCH (08:00)
[2016-12-29] MEDS ORDERED: Fenofibrate,Micronized 134 MG Cap PO SCH (08:00)
[2016-12-29] MEDS ORDERED: Formoterol/Mometasone 200-5 MCG 8.8 GM Inhaler IH SCH (08:00)
[2016-12-29] MEDS ORDERED: amLODIPine 5 MG Tab PO SCH (08:00)
[2016-12-29] MEDS ORDERED: Atenolol 25 MG Tab PO SCH (08:00)
[2016-12-29] MEDS ORDERED: THEOPHYLLINE 80 MG/15 ML PO SCH ×2 (08:00→18:00)
[2016-12-29] MEDS ORDERED: buPROPion 150 MG Tab.ER PO SCH (08:00)
[2016-12-29] MEDS ORDERED: Citalopram 20 MG Tab PO SCH (08:00)
[2016-12-29 08:10] LABS: CHLORIDE,CL 99 mmol/L (98-107); SODIUM,NA 137 mmol/L (136-145)
[2016-12-29] MEDS ORDERED: THEOPHYLLINE 400 MG PO SCH (08:30)
[2016-12-29] MEDS ORDERED: methylPREDNISolone Sodium Succinate 125 MG/2 ML SDV IVPUSH ONE (10:00)
[2016-12-29 10:51] LABS: O2 DELIVERY DEVICE NASAL CANNULA
[2016-12-29 10:55] LABS: BASE EXCESS ARTERIAL 15 mmol/L (-2-3); O2 FLOW RATE 4 L/min; O2 SATURATION ARTERIAL 83 % (95-98); PCO2 ARTERIAL 91 mmHG (35-45); PO2 ARTERIAL 57 mmHG (80-105)
[2016-12-29] MEDS ORDERED: Piperacillin/Tazobactam 3.375 GM in Sodium Chloride 0.9% 100 ML IV ONE (10:58)
[2016-12-29] MEDS ORDERED: cefTRIAXone 1 GM in Sodium Chloride 0.9% 100 ML IV SCH (11:00)
--- NOTE | 2016-12-29 11:12 | PCM.PN ---
- General Info Date of Service: 12/29/16 Functional Status: Reports: pain controlled - Review of Systems General: Reports: Fever HEENT: Reports: no symptoms Pulmonary: Reports: shortness of breath, cough, sputum Cardiovascular: Reports: No Symptoms Gastrointestinal: Reports: No symptoms Genitourinary: Reports: no symptoms Musculoskeletal: Reports: no symptoms Skin: Reports: no symptoms Neurological: Reports: Confusion Psychiatric: Reports: confusion - Patient Data Vitals - most recent: Last Vital Signs Temp 99.8 F 12/29/16 10:00 Pulse 75 12/29/16 10:30 Resp 26 H 12/29/16 10:30 BP 128/71 12/29/16 10:30 Pulse Ox 89 L 12/29/16 10:30 Weight - most recent: 256 lb I&O - last 24 hours: Intake & Output 12/28/16 12/29/16 12/29/16 22:59 06:59 14:59 Intake Total 500 330 Output Total 1100 300 Balance -600 30 Lab Results last 24 hrs: Laboratory Results - last 24 hr 12/29/16 12/29/16 12/29/16 Range/Units 07:05 07:05 10:40 WBC 22.7 H (4.0-10.2) K/uL RBC 3.96 L (4.33-5.41) M/uL Hgb 11.5 L (13.1-16.8) g/dL Hct 38.9 L (39.0-49.0) % MCV 98.2 H (84.0-98.0) fL MCH 29.0 (28.2-33.3) pg MCHC 29.6 L (31.7-36.0) g/dL RDW 13.7 (11.2-14.1) % Plt Count 272 (150-350) K/uL Neut % (Auto) 89.2 H (45.0-80.0) % Lymph % (Auto) 4.0 L (10.0-50.0) % [place] % (Auto) 6.7 (2.0-14.0) % Eos % (Auto) 0.1 (0.0-5.0) % Baso % (Auto) 0.0 (0.0-2.0) % Neut # (Auto) 20.24 H (1.40-7.00) K/uL Lymph # (Auto) 0.90 (0.50-3.50) K/uL [place] # (Auto) 1.51 H (0.00-1.00) K/uL Eos # (Auto) 0.02 (0.00-0.50) K/uL Baso # (Auto) 0.01 (0.00-0.20) K/uL ABG pH 7.27 L* (7.35-7.45) ABG pCO2 91 H* (35-45) mmHG ABG pO2 57 L* (80-105) mmHG ABG HCO3 42.0 H (22-26) mmol/L ABG Total CO2 45 H (23-27) mmol/L ABG O2 Saturation 83 L (95-98) % ABG Base Excess 15 H (-2-3) mmol/L O2 Delivery Device Nasal cannula Oxygen Flow Rate 4 L/min Sodium 137 (136-145) mmol/L Potassium 4.4 (3.5-5.1) mmol/L Chloride 99 (98-107) mmol/L Carbon Dioxide 40.1 H* (21.0-32.0) mmol/L BUN 23 H (7-18) mg/dL Creatinine 1.18 H (0.51-1.17) mg/dL Est Cr Clr Drug Dosing 66.77 mL/min Estimated GFR (MDRD) > 60 mL/min Glucose 149 H (74-106) mg/dL Calcium 8.4 L (8.5-10.1) mg/dL Total Bilirubin 0.4 (0.2-1.0) mg/dL AST 15 (15-37) U/L ALT 18 (12-78) U/L Alkaline Phosphatase 51 (46-116) IU/L Creatine Kinase 127 (26-308) U/L Creatine Kinase Index 4.1 H* (0.0-2.5) % CK-MB (CK-2) 5.20 H* (0.00-3.60) ng/mL Troponin I 0.023 (0.000-0.056) ng/mL C-Reactive Protein 5.2 H (<=0.9) mg/dL Total Protein 6.7 (6.4-8.2) g/dL Albumin 3.1 L (3.4-5.0) g/dL Theophylline 4 L (10-20) ug/dL Med Orders - Current: Current Medications Acetaminophen (Tylenol) 650 mg PO Q4H PRN PRN Reason: Pain (Mild 1-3)/fever Albuterol (Proventil Neb Soln) 2.5 mg INH Q2H PRN PRN Reason: SHORTNESS OF BREATH Last Admin: 12/29/16 09:45 Dose: 2.5 mg Albuterol/Ipratropium (Duoneb 3.0-0.5 Mg/3 Ml) 3 ml NEB Q4HRRT [facility] Last Admin: 12/29/16 07:58 Dose: 3 ml Amlodipine Besylate (Norvasc) 5 mg PO BID [facility] Last Admin: 12/29/16 07:56 Dose: 5 mg Aspirin (Ecotrin) 325 mg PO DAILY [facility] Last Admin: 12/29/16 07:54 Dose: 325 mg Atenolol (Tenormin) 25 mg PO DAILY [facility] Last Admin: 12/29/16 07:57 Dose: 25 mg Atorvastatin Calcium (Lipitor) 40 mg PO BEDTIME [facility] Bupropion HCl (Wellbutrin Xl) 150 mg PO DAILY [facility] Last Admin: 12/29/16 07:54 Dose: 150 mg Citalopram Hydrobromide (Celexa) 20 mg PO DAILY [facility] Last Admin: 12/29/16 07:54 Dose: 20 mg Fenofibrate (Fenofibrate) 134 mg PO DAILY [facility] Last Admin: 12/29/16 07:54 Dose: 134 mg Furosemide (Lasix) 40 mg PO DAILY [facility] Last Admin: 12/29/16 07:56 Dose: 40 mg Guaifenesin/Dextromethorphan (Mucinex Dm Er 600-30 Mg) 1 tab PO BID [facility] Last Admin: 12/29/16 07:53 Dose: 1 tab Ciprofloxacin/Dextrose 200 mg/ (Premix) 100 mls @ 100 mls/hr IV Q12HR [facility] Last Admin: 12/29/16 07:57 Dose: 100 mls/hr Ceftriaxone Sodium 1 gm/ (Sodium Chloride) 100 mls @ 200 mls/hr IV Q12H [facility] Last Admin: 12/29/16 10:28 Dose: 200 mls/hr Piperacillin Sod/Tazobactam (Sod 3.375 gm/ Sodium Chloride) 100 mls @ 200 mls/ hr IV ONETIME ONE Stop: 12/29/16 11:27 Lisinopril (Prinivil) 2.5 mg PO DAILY [facility] Last Admin: 12/29/16 07:55 Dose: 2.5 mg Metformin HCl (Glucophage) 500 mg PO BIDMEALS [facility] Last Admin: 12/29/16 07:55 Dose: 500 mg Mometasone Furoate/Formoterol Fumar (Dulera 200-5 Mcg) 2 puff IH BIDRT [facility] Last Admin: 12/29/16 07:50 Dose: 2 puff Morphine Sulfate (Morphine) 2 mg .XX Q2H PRN PRN Reason: Dyspnea Last Admin: 12/29/16 08:59 Dose: 2 mg Jairo-24 400mg Er (Caps) 1 each PO DAILY [facility] Last Admin: 12/29/16 08:44 Dose: 1 each Jairo-24 200mg Er (Caps) 1 each PO QPM [facility] Sodium Chloride (Saline Flush) 10 ml FLUSH ASDIRECTED PRN PRN Reason: Keep Vein Open Last Admin: 12/29/16 10:28 Dose: 10 ml Sodium Chloride (Saline Flush) 10 ml FLUSH Q12H PRN PRN Reason: Keep Vein Open Temazepam (Restoril) 15 mg PO BEDTIME PRN PRN Reason: Insomnia Tiotropium [place] (Spiriva Handihaler) 18 mcg INH DAILY [facility] Last Admin: 12/29/16 07:51 Dose: 1 puff Discontinued Medications Budesonide (Pulmicort) 0.5 mg NEB ONETIME ONE Stop: 12/28/16 22:21 Last Admin: 12/28/16 22:32 Dose: 0.5 mg Famotidine (Pepcid) 40 mg IVPUSH ONETIME ONE Stop: 12/28/16 22:16 Last Admin: 12/28/16 22:32 Dose: 40 mg Ceftriaxone Sodium 2 gm/ (Sodium Chloride) 100 mls @ 200 mls/hr IV ONETIME ONE Stop: 12/28/16 23:28 Last Admin: 12/28/16 23:07 Dose: 200 mls/hr Methylprednisolone Sodium Succinate (Solu-Medrol) 125 mg IVPUSH ONETIME ONE Stop: 12/29/16 10:01 Last Admin: 12/29/16 09:57 Dose: 125 mg Morphine Sulfate (Morphine) 2 mg .XX ONETIME ONE Stop: 12/28/16 22:20 Last Admin: 12/28/16 22:28 Dose: 2 mg Morphine Sulfate (Morphine) 2 mg .XX ONETIME ONE Stop: 12/28/16 23:31 Last Admin: 12/28/16 23:34 Dose: 2 mg Theophylline (Elixophyllin) 200 mg PO 1800 [facility] Theophylline (Elixophyllin) 400 mg PO DAILY [facility] - Exam Quality Assessment: supplemental oxygen General: mild distress, sedated HEENT: Pupils reactive Neck: trachea midline, no JVD Lungs: Decreased breath sounds, Rhonchi, Wheezing Cardiovascular: Regular Rate, Regular Rhythm (Male) Exam: Deferred Back Exam: normal inspection Extremities: no edema Skin: warm, dry, intact Neurological: no new focal deficit Psy/Mental Status: other (sedated) - Problem List & Annotations (1) Uncompensated respiratory acidosis SNOMED Code(s): 52405080 Code(s): E87.2 - ACIDOSIS Status: Acute Priority: High Current Visit: Yes (2) Pneumonia SNOMED Code(s): 308149984 Code(s): J18.9 - PNEUMONIA, UNSPECIFIED ORGANISM Status: Acute Priority: High Current Visit: Yes Onset Date: ~09/17/16 Qualifiers: Pneumonia type: due to unspecified organism Laterality: right Lung location: middle lobe of lung Qualified Code(s): J18.1 - Lobar pneumonia, unspecified organism Annotation/Comment:: Secondary to significant leukocytosis and recent hypoxia high-dose IV Rocephin initiated in the emergency room with additional IV Levaquin during this hospitalization. Blood cultures x2 were collected. Sputum for culture and sensitivity was also collected in the emergency room. Aggressive nebulizer therapy in the emergency room as above. Note long history of severe COPD and CO2 retention, although O2 sats did improve with emergency room care. (3) COPD, Severe chronic obstructive pulmonary disease SNOMED Code(s): 236290098 Code(s): J44.9 - CHRONIC OBSTRUCTIVE PULMONARY DISEASE, UNSPECIFIED Status : Chronic Priority: High Current Visit: Yes Annotation/Comment:: Severe O2 dependent COPD and sleep apnea, including oxygen and BiPAP therapy. Additional history of recurrent CO2 retention as above. ABGs depending on his clinical course. Theophylline level in the a.m. (4) Coronary artery disease SNOMED Code(s): 91313389 Code(s): I25.10 - ATHSCL HEART DISEASE OF [place] CORONARY ARTERY W/O ANG PCTRS Status: Chronic Priority: High Current Visit: Yes Qualifiers: Coronary Disease-Associated Artery/Lesion type: bypass graft, autologous artery Associated angina: without angina Qualified Code(s): I25.810 - Atherosclerosis of coronary artery bypass graft(s) without angina pectoris Annotation/Comment:: No chest pain or anginal complaints recently as above. Chest pain protocol not initiated in the emergency room secondary to absence of anginal complaints. Repeat EKG, blood work, etc. in the a.m. as above (5) Diabetes mellitus SNOMED Code(s): 19543926 Code(s): E11.9 - TYPE 2 DIABETES MELLITUS WITHOUT COMPLICATIONS Status: Chronic Priority: Medium Current Visit: Yes Qualifiers: Diabetes mellitus type: type 2 Diabetes mellitus complication status: without complication Diabetes mellitus skilled nursing insulin use: without skilled nursing use Qualified Code(s): E11.9 - Type 2 diabetes mellitus without complications Annotation/Comment:: Glycosylated hemoglobin during last hospitalization showed adequate control, although the patient does not take Accu-Cheks frequently at home (6) Hyperlipidemia SNOMED Code(s): 38015675 Code(s): E78.5 - HYPERLIPIDEMIA, UNSPECIFIED Status: Chronic Priority: Medium Current Visit: Yes Qualifiers: Hyperlipidemia type: mixed hyperlipidemia Qualified Code(s): E78.2 - Mixed hyperlipidemia Annotation/Comment:: Currently under therapy. Lipid panel conducted during recent hospitalization (7) Hypertension SNOMED Code(s): 23232244 Code(s): I10 - ESSENTIAL (PRIMARY) HYPERTENSION Status: Chronic Priority : Medium Current Visit: Yes Qualifiers: Hypertension type: essential hypertension Qualified Code(s): I10 - Essential (primary) hypertension Annotation/Comment:: Blood pressures stable. (8) Hypoxemia SNOMED Code(s): 550207705 Code(s): R09.02 - HYPOXEMIA Status: Chronic Priority: Medium Current Visit: Yes Annotation/Comment:: Progressive hypoxia today as above. Initial attempts to use patient's own BiPAP machine were not successful in the emergency room with our internal BiPAP machine to be used for therapy initially. (9) Pulmonary hypertension SNOMED Code(s): 03383421 Code(s): I27.2 - OTHER SECONDARY PULMONARY HYPERTENSION Status: Chronic Priority: High Current Visit: Yes Annotation/Comment:: Morphine nebulizer treatments given in the emergency room (10) Acute hypercapnic respiratory failure SNOMED Code(s): 106390172 Code(s): J96.02 - ACUTE RESPIRATORY FAILURE WITH HYPERCAPNIA Status: Acute Priority: High Current Visit: No - Problem List Review Problem List Initiated/Reviewed/Updated: Yes - My Orders Last 24 Hours: My Active Orders 12/29/16 08:30 Non-Formulary Medication [NF Drug] 1 each PO DAILY 12/29/16 10:58 Piperacillin/Tazobactam [Zosyn] 3.375 gm Sodium Chloride 0.9% [Normal Saline] 100 ml IV ONETIME 12/29/16 18:00 Non-Formulary Medication [NF Drug] 1 each PO QPM - Plan Plan:: 12/29/16 Shoshana Concepcion MD Sedated. Lethargic. Some mental confusion. Preliminary sputum possible Haemophilus. says continue DNR/DNI status but does want him transferred to [facility]. ~10;42am call one call. Talked with Dr. Drake. Recommend retry BI-PAP and keep O2 sats ~88%-90%. Give IV steroids (done), IV vancomycin. and IV zosyn. ABG noted with severe respiratory acidosis. Dr. Drake will accept him for transfer.
--- NOTE | 2016-12-29 11:20 | PCM.DCSUM1 ---
Discharge Summary - Discharge Data Discharge Date: 12/29/16 Discharge Disposition: DC/Tfer to Acute Hospital 02 Condition: Serious - Discharge Diagnosis/Problem(s) (1) Uncompensated respiratory acidosis SNOMED Code(s): 14128814 ICD Code: E87.2 - ACIDOSIS Status: Acute Priority: High Current Visit: Yes (2) Pneumonia SNOMED Code(s): 022522742 ICD Code: J18.9 - PNEUMONIA, UNSPECIFIED ORGANISM Status: Acute Priority : High Current Visit: Yes Onset Date: ~09/17/16 Problem Details: Secondary to significant leukocytosis and recent hypoxia high-dose IV Rocephin initiated in the emergency room with additional IV Levaquin during this hospitalization. Blood cultures x2 were collected. Sputum for culture and sensitivity was also collected in the emergency room. Aggressive nebulizer therapy in the emergency room as above. Note long history of severe COPD and CO2 retention, although O2 sats did improve with emergency room care. Qualifiers: Pneumonia type: due to unspecified organism Laterality: right Lung location: middle lobe of lung Qualified Code(s): J18.1 - Lobar pneumonia, unspecified organism (3) COPD, Severe chronic obstructive pulmonary disease SNOMED Code(s): 231677690 ICD Code: J44.9 - CHRONIC OBSTRUCTIVE PULMONARY DISEASE, UNSPECIFIED Status : Chronic Priority: High Current Visit: Yes Problem Details: Severe O2 dependent COPD and sleep apnea, including oxygen and BiPAP therapy. Additional history of recurrent CO2 retention as above. ABGs depending on his clinical course. Theophylline level in the a.m. (4) Coronary artery disease SNOMED Code(s): 14793949 ICD Code: I25.10 - ATHSCL HEART DISEASE OF [place] CORONARY ARTERY W/O ANG PCTRS Status: Chronic Priority: High Current Visit: Yes Problem Details : No chest pain or anginal complaints recently as above. Chest pain protocol not initiated in the emergency room secondary to absence of anginal complaints. Repeat EKG, blood work, etc. in the a.m. as above Qualifiers: Coronary Disease-Associated Artery/Lesion type: bypass graft, autologous artery Associated angina: without angina Qualified Code(s): I25.810 - Atherosclerosis of coronary artery bypass graft(s) without angina pectoris (5) Diabetes mellitus SNOMED Code(s): 00443410 ICD Code: E11.9 - TYPE 2 DIABETES MELLITUS WITHOUT COMPLICATIONS Status: Chronic Priority: Medium Current Visit: Yes Problem Details: Glycosylated hemoglobin during last hospitalization showed adequate control, although the patient does not take Accu-Cheks frequently at home Qualifiers: Diabetes mellitus type: type 2 Diabetes mellitus complication status: without complication Diabetes mellitus 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 Lipid panel conducted during recent hospitalization Qualifiers: Hyperlipidemia type: mixed hyperlipidemia Qualified Code(s): E78.2 - Mixed hyperlipidemia (7) Hypertension SNOMED Code(s): 68881189 ICD Code: I10 - ESSENTIAL (PRIMARY) HYPERTENSION Status: Chronic Priority : Medium Current Visit: Yes Problem Details: Blood pressures stable. Qualifiers: Hypertension type: essential hypertension Qualified Code(s): I10 - Essential (primary) hypertension (8) Hypoxemia SNOMED Code(s): 732377385 ICD Code: R09.02 - HYPOXEMIA Status: Chronic Priority: Medium Current Visit: Yes Problem Details: Progressive hypoxia today as above. Initial attempts to use patient's own BiPAP machine were not successful in the emergency room with our internal BiPAP machine to be used for therapy initially. (9) Pulmonary hypertension SNOMED Code(s): 94275418 ICD Code: I27.2 - OTHER SECONDARY PULMONARY HYPERTENSION Status: Chronic Priority: High Current Visit: Yes Problem Details: Morphine nebulizer treatments given in the emergency room (10) Acute hypercapnic respiratory failure SNOMED Code(s): 829268156 ICD Code: J96.02 - ACUTE RESPIRATORY FAILURE WITH HYPERCAPNIA Status: Acute Priority: High Current Visit: No - Discharge Plan Home Medications: Home Meds Albuterol [Ventolin HFA] 2 puff INH Q4H 07/27/13 [History] Albuterol/Ipratropium [DuoNeb 3.0-0.5 MG/3 ML] 1 inhalation INH QID 07/27/13 [ History] Ascorbic Acid [Vitamin C] 500 mg PO DAILY 07/27/13 [History] Aspirin [Ecotrin] 325 mg PO DAILY 07/27/13 [History] Atenolol 25 mg PO DAILY 07/27/13 [History] Cholecalciferol (Vitamin D3) [Vitamin D3] 2,000 unit PO BID 07/27/13 [History] Citalopram [Citalopram HBr] 20 mg PO DAILY 07/27/13 [History] Fluticasone/Salmeterol [Advair 500-50] 1 puff INH BID 07/27/13 [History] Furosemide [Lasix] 40 mg PO DAILY 07/27/13 [History] Tiotropium [Spiriva HandiHaler] 1 inh INH DAILY 07/27/13 [History] amLODIPine [Norvasc] 5 mg PO BID 07/27/13 [History] metFORMIN HCl [Metformin HCl] 500 mg PO BID 07/27/13 [History] atorvaSTATin [Lipitor] 40 mg PO BEDTIME 04/23/15 [History] Fenofibrate,Micronized [Fenofibrate] 134 mg PO DAILY 01/14/16 [History] buPROPion HCl [Wellbutrin Xl] 150 mg PO DAILY 01/14/16 [History] Lisinopril [Prinivil] 2.5 mg PO DAILY 03/06/16 [History] Theophylline Anhydrous [Jairo-24] 400 mg PO DAILY 03/06/16 [History] Theophylline [Jairo-24] 200 mg PO 1800 09/20/16 [History] Forms: ED Department Discharge Referrals: Evelyn Mirza MD [Primary Care Provider] - - Discharge Summary/Plan Comment DC Time >30 min.: Yes Discharge Summary/Plan Comment: 66 yowm O2 dependent COPD, known CO2 retainer, also remote history of MRSA developed cough yesterday, green productive sputum hypoxemia worsened. He and agree DNR/DNI but do agree to transfer to [facility]. Talked with Dr. Drake who agrees to accept. - Patient Data Vitals - Most Recent: Last Vital Signs Temp 99.8 F 12/29/16 10:00 Pulse 75 12/29/16 10:30 Resp 26 H 12/29/16 10:30 BP 128/71 12/29/16 10:30 Pulse Ox 89 L 12/29/16 10:30 Weight - Most Recent: 256 lb I&O - Last 24 hours: Intake & Output 12/28/16 12/29/16 12/29/16 22:59 06:59 14:59 Intake Total 500 330 Output Total 1100 300 Balance -600 30 Lab Results - Last 24 hrs: Laboratory Results - last 24 hr 12/29/16 12/29/16 12/29/16 Range/Units 07:05 07:05 10:40 WBC 22.7 H (4.0-10.2) K/uL RBC 3.96 L (4.33-5.41) M/uL Hgb 11.5 L (13.1-16.8) g/dL Hct 38.9 L (39.0-49.0) % MCV 98.2 H (84.0-98.0) fL MCH 29.0 (28.2-33.3) pg MCHC 29.6 L (31.7-36.0) g/dL RDW 13.7 (11.2-14.1) % Plt Count 272 (150-350) K/uL Neut % (Auto) 89.2 H (45.0-80.0) % Lymph % (Auto) 4.0 L (10.0-50.0) % Cassia % (Auto) 6.7 (2.0-14.0) % Eos % (Auto) 0.1 (0.0-5.0) % Baso % (Auto) 0.0 (0.0-2.0) % Neut # (Auto) 20.24 H (1.40-7.00) K/uL Lymph # (Auto) 0.90 (0.50-3.50) K/uL Cassia # (Auto) 1.51 H (0.00-1.00) K/uL Eos # (Auto) 0.02 (0.00-0.50) K/uL Baso # (Auto) 0.01 (0.00-0.20) K/uL ABG pH 7.27 L* (7.35-7.45) ABG pCO2 91 H* (35-45) mmHG ABG pO2 57 L* (80-105) mmHG ABG HCO3 42.0 H (22-26) mmol/L ABG Total CO2 45 H (23-27) mmol/L ABG O2 Saturation 83 L (95-98) % ABG Base Excess 15 H (-2-3) mmol/L O2 Delivery Device Nasal cannula Oxygen Flow Rate 4 L/min Sodium 137 (136-145) mmol/L Potassium 4.4 (3.5-5.1) mmol/L Chloride 99 (98-107) mmol/L Carbon Dioxide 40.1 H* (21.0-32.0) mmol/L BUN 23 H (7-18) mg/dL Creatinine 1.18 H (0.51-1.17) mg/dL Est Cr Clr Drug Dosing 66.77 mL/min Estimated GFR (MDRD) > 60 mL/min Glucose 149 H (74-106) mg/dL Calcium 8.4 L (8.5-10.1) mg/dL Total Bilirubin 0.4 (0.2-1.0) mg/dL AST 15 (15-37) U/L ALT 18 (12-78) U/L Alkaline Phosphatase 51 (46-116) IU/L Creatine Kinase 127 (26-308) U/L Creatine Kinase Index 4.1 H* (0.0-2.5) % CK-MB (CK-2) 5.20 H* (0.00-3.60) ng/mL Troponin I 0.023 (0.000-0.056) ng/mL C-Reactive Protein 5.2 H (<=0.9) mg/dL Total Protein 6.7 (6.4-8.2) g/dL Albumin 3.1 L (3.4-5.0) g/dL Theophylline 4 L (10-20) ug/dL Med Orders - Current: Current Medications Acetaminophen (Tylenol) 650 mg PO Q4H PRN PRN Reason: Pain (Mild 1-3)/fever Albuterol (Proventil Neb Soln) 2.5 mg INH Q2H PRN PRN Reason: SHORTNESS OF BREATH Last Admin: 12/29/16 09:45 Dose: 2.5 mg Albuterol/Ipratropium (Duoneb 3.0-0.5 Mg/3 Ml) 3 ml NEB Q4HRRT [facility] Last Admin: 12/29/16 07:58 Dose: 3 ml Amlodipine Besylate (Norvasc) 5 mg PO BID [facility] Last Admin: 12/29/16 07:56 Dose: 5 mg Aspirin (Ecotrin) 325 mg PO DAILY [facility] Last Admin: 12/29/16 07:54 Dose: 325 mg Atenolol (Tenormin) 25 mg PO DAILY [facility] Last Admin: 12/29/16 07:57 Dose: 25 mg Atorvastatin Calcium (Lipitor) 40 mg PO BEDTIME [facility] Bupropion HCl (Wellbutrin Xl) 150 mg PO DAILY [facility] Last Admin: 12/29/16 07:54 Dose: 150 mg Citalopram Hydrobromide (Celexa) 20 mg PO DAILY [facility] Last Admin: 12/29/16 07:54 Dose: 20 mg Fenofibrate (Fenofibrate) 134 mg PO DAILY [facility] Last Admin: 12/29/16 07:54 Dose: 134 mg Furosemide (Lasix) 40 mg PO DAILY [facility] Last Admin: 12/29/16 07:56 Dose: 40 mg Guaifenesin/Dextromethorphan (Mucinex Dm Er 600-30 Mg) 1 tab PO BID [facility] Last Admin: 12/29/16 07:53 Dose: 1 tab Ciprofloxacin/Dextrose 200 mg/ (Premix) 100 mls @ 100 mls/hr IV Q12HR [facility] Last Admin: 12/29/16 07:57 Dose: 100 mls/hr Ceftriaxone Sodium 1 gm/ (Sodium Chloride) 100 mls @ 200 mls/hr IV Q12H [facility] Last Admin: 12/29/16 10:28 Dose: 200 mls/hr Piperacillin Sod/Tazobactam (Sod 3.375 gm/ Sodium Chloride) 100 mls @ 200 mls/ hr IV ONETIME ONE Stop: 12/29/16 11:27 Last Admin: 12/29/16 11:10 Dose: 200 mls/hr Vancomycin HCl 1.5 gm/ Sodium (Chloride) 500 mls @ 333 mls/hr IV ONETIME ONE Stop: 12/29/16 13:00 Lisinopril (Prinivil) 2.5 mg PO DAILY [facility] Last Admin: 12/29/16 07:55 Dose: 2.5 mg Metformin HCl (Glucophage) 500 mg PO BIDMEALS [facility] Last Admin: 12/29/16 07:55 Dose: 500 mg Mometasone Furoate/Formoterol Fumar (Dulera 200-5 Mcg) 2 puff IH BIDRT [facility] Last Admin: 12/29/16 07:50 Dose: 2 puff Morphine Sulfate (Morphine) 2 mg .XX Q2H PRN PRN Reason: Dyspnea Last Admin: 12/29/16 08:59 Dose: 2 mg Jairo-24 400mg Er (Caps) 1 each PO DAILY ASHLEY Last Admin: 12/29/16 08:44 Dose: 1 each Jairo-24 200mg Er (Caps) 1 each PO QPM ASHLEY Sodium Chloride (Saline Flush) 10 ml FLUSH ASDIRECTED PRN PRN Reason: Keep Vein Open Last Admin: 12/29/16 10:28 Dose: 10 ml Sodium Chloride (Saline Flush) 10 ml FLUSH Q12H PRN PRN Reason: Keep Vein Open Temazepam (Restoril) 15 mg PO BEDTIME PRN PRN Reason: Insomnia Tiotropium Arnot (Spiriva Handihaler) 18 mcg INH DAILY ASHLEY Last Admin: 12/29/16 07:51 Dose: 1 puff Discontinued Medications Budesonide (Pulmicort) 0.5 mg NEB ONETIME ONE Stop: 12/28/16 22:21 Last Admin: 12/28/16 22:32 Dose: 0.5 mg Famotidine (Pepcid) 40 mg IVPUSH ONETIME ONE Stop: 12/28/16 22:16 Last Admin: 12/28/16 22:32 Dose: 40 mg Ceftriaxone Sodium 2 gm/ (Sodium Chloride) 100 mls @ 200 mls/hr IV ONETIME ONE Stop: 12/28/16 23:28 Last Admin: 12/28/16 23:07 Dose: 200 mls/hr Methylprednisolone Sodium Succinate (Solu-Medrol) 125 mg IVPUSH ONETIME ONE Stop: 12/29/16 10:01 Last Admin: 12/29/16 09:57 Dose: 125 mg Morphine Sulfate (Morphine) 2 mg .XX ONETIME ONE Stop: 12/28/16 22:20 Last Admin: 12/28/16 22:28 Dose: 2 mg Morphine Sulfate (Morphine) 2 mg .XX ONETIME ONE Stop: 12/28/16 23:31 Last Admin: 12/28/16 23:34 Dose: 2 mg Theophylline (Elixophyllin) 200 mg PO 1800 ASHLEY Theophylline (Elixophyllin) 400 mg PO DAILY ASHLEY *Q Meaningful Use (DIS) - VTE *Q VTE Criteria *Q: - Stroke *Q Stroke Criteria *Q: - AMI *Q AMI Criteria *Q:
[2016-12-29] MEDS ORDERED: Albuterol 0.083% 2.5 MG/3 ML Neb Soln INH PRN (11:21)
[2016-12-29] MEDS ORDERED: Vancomycin 1.5 GM in Sodium Chloride 0.9% 500 ML IV ONE (11:30)
--- NOTE | 2016-12-29 12:17 | PCM.SN ---
- Free Text/Narrative Note: 12/29/16 Shoshana Concepcion MD Called by nurse to come to room. Zosyn IV running, attempt at Bi-Pap. O2 sats dropped to 70% then 60% then ~50%. Given albuterol nebulizer. O2 sats remain in ~50s%. He began agonal breathing. did not want code status changed. DNR/ DNI. Bi-Pap removed. O2 per nasal cannula then non rebreather mask. O2 sats did raise to ~70s% temporarily, then heart rate dropped 25-30 bpm. Blood pressure began to drop. Family at bedside. Respirations ceased, asystole, pupils fixed and dilated. He peacefully. Time of 11:44am.
--- NOTE | 2016-12-29 13:21 | PCM.SN ---
- Free Text/Narrative Note: I did speak with Dr. Drake at [facility] regarding patient is here in our hospital.
[2016-12-29 15:19] VITALS: BP 122/43
[2016-12-29] MEDS ORDERED: THEOPHYLLINE 200 MG PO SCH (18:00)
[2016-12-29] MEDS ORDERED: atorvaSTATin 40 MG Tab PO SCH (20:00)
== END 2016-12-29 12:59 | disposition expired | DRG 640 ==
LOC: LL.ED 22:11 → UNDOADMOB 23:15 → INTOOBSV 23:15 → LL.MS 23:15 → OBSVTOIN 23:15 → LL.MS 12-29 → UNDODISIN 12-29 12:59
PROVIDERS: ADMIT Family Medicine; ATTEND Family Medicine
DX: E87.2 Acidosis (principal); J96.02 Acute respiratory failure with hypercapnia; J18.1 Lobar pneumonia, unspecified organism; J44.0 Chronic obstructive pulmonary disease with (acute) lower respiratory infection; I25.10 Atherosclerotic heart disease of native coronary artery without angina pectoris; I50.9 Heart failure, unspecified; E78.00 Pure hypercholesterolemia, unspecified; I49.9 Cardiac arrhythmia, unspecified; I27.2 Other secondary pulmonary hypertension; G47.30 Sleep apnea, unspecified; K21.9 Gastro-esophageal reflux disease without esophagitis; D64.9 Anemia, unspecified; I12.9 Hypertensive chronic kidney disease with stage 1 through stage 4 chronic kidney disease, or unspecified chronic kidney disease; N18.9 Chronic kidney disease, unspecified; E11.21 Type 2 diabetes mellitus with diabetic nephropathy; Z95.1 Presence of aortocoronary bypass graft; F41.8 Other specified anxiety disorders; F17.200 Nicotine dependence, unspecified, uncomplicated; Z79.4 Long term (current) use of insulin; Z99.81 Dependence on supplemental oxygen; Z79.899 Other long term (current) drug therapy
CPT/HCPCS: 36415; 71010; 80053; 82550; 82553; 83605; 83735; 83880; 84443; 84484; 84550; 85025; 85379; 85610; 85730; 86318; 87040 ×2; 87070; 87205; 87804 ×2; 93005; 94640 ×3; 94664; 96365; 96375; 99285; J0696; J2270; J7050 ×2; 80198; 82803; 86140; A9270-GY; J0744; J2543; J2930; J7620-GY; S0028